=== PATIENT | male | born 1930 | race Caucasian/White ===

== ENCOUNTER 2016-09-27 10:08 | Inpatient (IN) | payer OTHER ==
--- NOTE | 2016-09-27 10:45 | UCPHY ---
H & P Patient Type: Established Chief Complaint Nursing Narrative: dysuria and difficulty urinating since wednesday , seen by urologist last week and given lupron injection for prostate ca. pt able to urinate small amount of blood, clots noted in triage. denies fevers. Time Seen by Provider: 09/27/16 10:11 HPI/ROS: Chief Complaint: Difficulty with urination HPI: 86-year-old male with known prostate cancer presenting with 2 days of difficulty urinating, burning with urination. Did pass some blood clots this morning. He has not had a urinary tract infection he is aware of in the past. No fevers or chills. No nausea or vomiting. Was started this week on Lupron therapy for his prostate cancer. Is a patient of . Has had a Garcia catheter in place for surgeries in the past but does not have a history of urinary retention. No back pain or flank pain. No abdominal pain. ROS: 10 point Review of Systems is negative except as noted in the HPI. 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 North Social History: No smoking, no alcohol, no recreational drug use Family History: non-contributory Physical Exam: Gen: Awake, Alert, No Distress HEENT: Nose: no rhinorrhea Eyes: PERRLA, EOMI Mouth: Moist mucosa Neck: Supple, no JVD Chest: nontender, lungs clear to auscultation Heart: S1, S2 normal, no murmur Abd: Soft, mild discomfort to palpation of his urinary bladder, no guarding Back: no CVA tenderness, no midline tenderness Ext: no edema, non-tender Skin: no rash Neuro: CN II-XII intact, Sensation grossly intact, Strength 5/5 in bilateral upper and lower extremities - Personal History Tetanus Vaccine Date: within 10 years - Medical/Surgical History Hx Asthma: No Hx Chronic Respiratory Disease: No Hx Diabetes: Yes Hx Cardiac Disease: Yes Hx Renal Disease: Yes Hx Cirrhosis: No Hx Alcoholism: No Hx HIV/AIDS: No Hx Splenectomy or Spleen Trauma: No Other PMH: hypothyroid; macular degeneration; hearing loss; hypertension; Hodgkins disease; laser surgery, prostate 04/11; a-fib - Family History Significant Family History: No pertinent family hx - Social History Smoking Status: Never smoked Constitutional: Initial Vital Signs Temperature (C) 36.4 C 09/27/16 10:15 Heart Rate 78 09/27/16 10:15 Respiratory Rate 20 09/27/16 10:15 Blood Pressure 117/65 09/27/16 10:15 O2 Sat (%) 95 09/27/16 10:15 O2 Delivery Mode Room Air Allergies/Adverse Reactions: Sulfa (Sulfonamide Antibiotics) Allergy (Verified 09/27/16 10:27) Unknown hayfever Allergy (Mild, Uncoded 09/27/16 10:27) Congestion Home Medications: Medication Instructions Recorded Coq10 04/04/16 Lisinopril 04/04/16 Macular Degeneration Med 04/04/16 Multivitamin 04/04/16 SIMVASTATIN 04/04/16 Sertraline HCl 04/04/16 Finasteride 09/27/16 Levothyroxine 09/27/16 Plavix 09/27/16 Ranitidine HCl 09/27/16 Tamsulosin HCl 09/27/16 Medical Decision Making Procedures: Procedure: Limited pelvic ultrasound. A limited pelvic was performed for the indication of lower abdominal tenderness and possible urinary retention. The lower abdomen was scanned looking for bladder distention. By ultrasound there appears to be a large amount of retained urine after voiding. The exam was performed by myself. Differential Diagnosis: Patient presenting with urinary tension hematuria here on a background of bladder cancer. Will attempt Garcia catheter placement and evaluate urinalysis. Multiple attempts have been made a catheterization without success. Standard and 18 Kiswahili coude catheters attempted with the nurses meeting resistance at the patient's prostate. Will discuss with Urology with plans to likely transfer to [facility] for consultation. Case discussed with RUBA Forrest, on-call for Dr. Gage. She would like the patient transferred to [facility]. Dr. Tijerina see the patient in the ED. I have discussed with Dr. Fitzpatrick, [facility] ED. He will accept the patient transfer. I have offered pain medicine, but they would rather go directly to the ED. An IV has been placed. - Data Points Medications Given: Discontinued Medications Lidocaine (Uroject Lidocaine 2% Jelly) 20 ml UR EDNOW ONE Stop: 09/27/16 11:09 Last Admin: 09/27/16 11:13 Dose: 20 ml Departure - Departure Disposition: [facility] ER Clinical Impression: Urine retention, Hematuria Condition: Fair Referrals: Joana Montero MD [Primary Care Provider] - As per Instructions - PQRS PQRS Measurement: 134: Depression screening and followup, PRIME MD-PHQ2 (12 years and older) Over the last 2 weeks, how often have you been bothered by any of the following problems? 1. Feeling down, depressed, or hopeless? 2. Little interest or pleasure in doing things? Patient answered no to both 1 and 2 . 130: Documentation of medications. Reviewed all patient medications, doses, route and frequency. . 226: Do you smoke? No. 47: 65 and older: Advanced care planning. Patient designates surrogate decision maker as spouse . 51: 18 years old and older with diagnosis of COPD, spirometry performance. Patient has no history of COPD 52: 18 years old and older with COPD and symptoms of COPD or FEV1<60% predicted prescribed a B Agonist. Spirometry not performed; equipment not available.
[2016-09-27] MEDS ORDERED: LIDOCAINE 2% JELLY 20 ML (UROJECT) UR ONE (11:08)
--- NOTE | 2016-09-27 13:47 | EDPHY ---
HPI/HX/ROS/PE/MDM Narrative: CHIEF COMPLAINT: Urinary retention, dysuria. HISTORY OF PRESENT ILLNESS: The patient is an 86-year-old male with a history of prostate cancer who presents with urinary retention and dysuria over the past 2 days. He was seen by his urologist last week for Lupron injection but did not have symptoms at that time. He was seen at Urgent Care this morning but was only able to urinate a small amount of blood. He admits associated abdominal pain. He denies fever, recent sickness, or other complaints. No chills , chest pain, shortness of breath, palpitations, vomiting, diarrhea, headache, lightheadedness, chest pain. He is anticoagulated on Plavix. REVIEW OF SYSTEMS: Aside from elements discussed in the HPI, a comprehensive 10-point review of systems was reviewed and is negative. PAST MEDICAL HISTORY: CVA, hypothyroidism, macular degeneration, hearing loss , hypertension, atrial fibrillation, prostate cancer. SOCIAL HISTORY: . VITAL SIGNS: Reviewed by me GENERAL: Elderly male, alert, awake, moderate distress secondary to pain. HEENT: Atraumatic. Eyes: No icterus, no injection. Mouth: dry lips, moist mucous membranes. No erythema or lesions. Neck: supple with no adenopathy. LUNGS: Clear to auscultation. CARDIAC: Regular rate and rhythm, no rubs, murmurs or gallops. ABDOMEN: Soft, bladder palpable above pubic symphysis, tender to palpation. Bowel sounds normal. Male : Justin blood and blood clots present in Depends. No blood at meatus. Normal testicular and scrotal exam. BACK: No CVA tenderness. EXTREMITIES: No trauma. No edema. Range of motion is normal throughout. NEURO: Alert and oriented, grossly nonfocal. SKIN: Warm and dry, no rash. PSYCHIATRIC: Normal mentation, no agitation. Portions of this note were transcribed by a medical administrative specialist. I personally performed a history, physical exam, medical decision making, and confirmed accuracy of information the transcribed note. ED Course: After my initial exam I spoke to Lisandra Forrest, urology. She tells me that Dr. Gage is on his way to the ED to consult with the patient. Plan for bladder scan and IV pain medications. .5mg IV Dilaudid administered. Bladder scan shows 257ml urine present. 1503: Consulted with Dr. Gage, urology, after his evaluation of the patient. He will take him to the OR. Arrangements for inpatient bed made. See Dr. Stephens notations. MDM: 86 year old male with urinary retention and hematuria. Diff dx includes infection, bladder cancer, over anticoagulation from plavix, clot, prostate enlargement. - Data Points Medications Given: Discontinued Medications Hydromorphone HCl (Dilaudid) 0.5 mg IVP EDNOW ONE Stop: 09/27/16 13:49 Last Admin: 09/27/16 14:05 Dose: 0.5 mg Lidocaine (Uroject Lidocaine 2% Jelly) 20 ml UR EDNOW ONE Stop: 09/27/16 11:09 Last Admin: 09/27/16 11:13 Dose: 20 ml General Time Seen by Provider: 09/27/16 10:11 Initial Vital Signs: Initial Vital Signs Temperature (C) 36.4 C 09/27/16 10:15 Heart Rate 78 09/27/16 10:15 Respiratory Rate 20 09/27/16 10:15 Blood Pressure 117/65 09/27/16 10:15 O2 Sat (%) 95 09/27/16 10:15 O2 Delivery Mode Room Air Allergies/Adverse Reactions: Sulfa (Sulfonamide Antibiotics) Allergy (Verified 09/27/16 10:27) Unknown hayfever Allergy (Mild, Uncoded 09/27/16 10:27) Congestion Home Medications: Medication Instructions Recorded Aflibercept [Eylea] 2 mg IO Q30D PRN 04/04/16 C/E/Zn/Cu/OM3/DHA/EPA/LUT/ZEAX 1 each PO BID 04/04/16 [Preservision Areds 2 Softgel] Herbals/Supplements -Info Only 1 ea PO DAILY 04/04/16 Lisinopril [Zestril 2.5 mg (*)] 7.5 mg PO DAILY 04/04/16 Sertraline HCl [Zoloft 100mg (*)] 100 mg PO DAILY 04/04/16 Simvastatin [Zocor] 20 mg PO HS 04/04/16 Ascorbic Acid [Vitamin C 500 mg 500 mg PO DAILY 09/27/16 (*)] Cholecalciferol Vit D3 [Vitamin D3 1,000 units PO DAILY 09/27/16 (*)] Clopidogrel Bisulfate [Plavix (*)] 75 mg PO DAILY 09/27/16 Finasteride [Proscar 5 MG (*)] 5 mg PO DAILY 09/27/16 Leuprolide Acetate [Lupron Depot] 22.5 mg IM .[id number] 09/27/16 Levothyroxine [Synthroid 88 mcg 88 mcg PO DAILY06 09/27/16 (*)] Mirabegron [Myrbetriq] 25 mg PO DAILY 09/27/16 Ranitidine HCl 150 mg PO HS 09/27/16 Tamsulosin HCl [Flomax 0.4 MG (*)] 0.8 mg PO DAILY 09/27/16 Departure - Departure Disposition: To OP Cath/Surgery Clinical Impression: Urine retention, Hematuria Condition: Fair Report Scribed for: Va Rosales Report Scribed by: Blake Olivier Date of Report: 09/27/16 Time of Report: 13:49
[2016-09-27] MEDS ORDERED: HYDROmorphONE/DILAUDID 1 MG/ML SYR IVP ONE (13:48)
[2016-09-27] MEDS ORDERED: LIDOCAINE 2% JELLY 20 ML (UROJECT) ONE (14:32)
--- NOTE | 2016-09-27 15:37 | GHP ---
[f rep st] HISTORY AND PHYSICAL DATE OF ADMISSION: 09/27/2016 ADMISSION DIAGNOSIS: Urinary retention. HISTORY OF PRESENT ILLNESS: This is an 86-year-old gentleman, who has had adenocarcinoma of the pro state progressing, and he has had no definitive therapy. He has most recently started Lupron becaus e of rising PSA. He has had a previous photovaporization of the prostate, and an incision of bladde r neck contracture with unsuccessful results. He presents today at urgent care, then transferred to the emergency room because of urinary retention. His bladder is painful. He says he has not voide d for some time. He is not a great historian and does not give total detail. So I have reviewed hi s records from the office that showed he has also had a history of kidney stones. He has recently h ad atrial fibrillation and with a possible stroke, and is on Plavix. His history other than the pro state is not well documented. HABITS: He is a nonsmoker, nondrinker. FAMILY HISTORY: Noncontributory. REVIEW OF SYSTEMS: Negative for respiratory, GI, endocrine. He has atrial fibrillation. Urologica lly, he is normal with no pain or weakness in lower extremities. PHYSICAL EXAM: VITAL SIGNS: Stable. CHEST: Clear. HEART: Regular rate and rhythm. ABDOMEN: N ormal. No organomegaly. No rebound or guarding. Abdomen has the dilated bladder up to his umbilic us. He has no CVA tenderness. EXTREMITIES: No significant lower extremity edema. SKIN: Normal. NEUROLOGIC: Oriented x3. IMPRESSION: He has had a history of diabetes, cardiac disease, renal disease, and prostate cancer, macular degeneration, hearing loss, Hodgkin disease. Family history is noncontributory. At the present time, he is admitted after attempted catheterization in the emergency room. It shoul d be said that he had multiple attempts at catheterization in the previous care facility and that wa s unsuccessful, so he is admitted now to go to the operating room for the above procedure. /[id number]/MODL
--- NOTE | 2016-09-27 15:38 | GCON ---
[f rep st] CONSULTATION I have been asked to see this gentleman because of urinary retention. There have been multiple atte mpts at catheterization, and he is unable to void. He has been progressively worsening over the pas t several days. It appears that he had an endoscopy procedure done in the office recently, it showe d he had a bladder neck contracture, and he was placed on Myrbetriq. His postvoid residual was not documented in the office notes that I could delineate. I reviewed his history, it is well documente d in the emergency room notes, as far as findings. PHYSICAL EXAMINATION: GENERAL: Today he is alert and oriented x3. HEART: Regular rate and rhythm . ABDOMEN: Normal with no rebound or guarding. He has a large abdominal mass related to his bladd er. : Exam of penis reveals that he has blood per urethra. LOWER EXTREMITIES: Normal. IMPRESSION: At the present time in the emergency room, I am going to attempt to do a cystoscopy to see if we can dilate his a bladder neck contracture, put a catheter in. If not, he will need to go to the operating room. /[id number]/MODL
--- NOTE | 2016-09-27 15:38 | GOP ---
[f rep st] OPERATIVE REPORT DATE OF OPERATION: 09/27/2016 SURGEON: Terry Gage MD PREOPERATIVE DIAGNOSIS: Urinary retention, history of prostate cancer, bladder neck contracture. POSTOPERATIVE DIAGNOSIS: PROCEDURE PERFORMED: Cystoscopy with attempted dilation of bladder neck contracture and catheter pl acement, unsuccessful. FINDINGS: DESCRIPTION OF PROCEDURE: Gentleman underwent appropriate anesthesia, prepped and draped in normal sterile fashion. Cystoscopy was passed. He had multiple traumatic injuries of the urethra. On ope mikael the prostate, I could eventually get the clot out to identify he had a bladder neck contracture that would not accommodate the scope. At that point, I passed a guidewire into the bladder through the scope and then tried to dilate it with a urethral dilator, the Tribe tip type, tried to place a Tribe tip catheter, and attempted to pass a Garcia catheter. All unsuccessful, so at that point , I terminated the procedure and have elected to take him to the operating room to undergo incision of bladder neck contracture. Risk of bleeding, infection have been discussed. Written and verbal c onsent were obtained. He will undergo the above procedure. /[id number]/MODL
[2016-09-27] MEDS ORDERED: NON-FORMULARY NEW DRUG (Aflibercept [Eylea] 2 MG) IO PRN (15:42)
[2016-09-27] MEDS ORDERED: ceFAZolin 2 GM/DEXTROSE 100 ML IV ONE (15:44)
[2016-09-27] MEDS ORDERED: MIDAZOLAM 2 MG/2 ML VIAL ONE (15:47)
[2016-09-27] MEDS ORDERED: CEFAZOLIN 2 GM/DEXTROSE/100 ML BAG IV ONE ×2 (15:49→15:53)
[2016-09-27] MEDS ORDERED: PROPOFOL 200 MG/20 ML VIAL ONE (15:55)
[2016-09-27] MEDS ORDERED: LIDOCAINE 2% 5 ML SDV ONE (15:55)
[2016-09-27] MEDS ORDERED: PHENYLEPHRINE HCL 100 MCG/ML SYR ONE (15:55)
[2016-09-27] MEDS ORDERED: fentaNYL 100 MCG/2 ML INJ ONE ×2 (15:55→17:09)
[2016-09-27] MEDS ORDERED: ROCURONIUM 50 MG/5 ML VIAL ONE (15:55)
[2016-09-27] MEDS ORDERED: DEXAMETHASONE 4 MG/ML VIAL ONE (15:55)
[2016-09-27] MEDS ORDERED: SUGAMMADEX SODIUM 200 MG/2 ML VIAL IVP ONE (16:15)
[2016-09-27] MEDS ORDERED: ONDANSETRON DISINTEGRATING 4 MG TAB PO PRN (16:56)
[2016-09-27] MEDS ORDERED: ACETAMINOPHEN 325 MG TAB PO PRN (16:56)
[2016-09-27] MEDS ORDERED: HYDROCODONE/APAP 5/325 TAB PO PRN (16:56)
[2016-09-27] MEDS ORDERED: ONDANSETRON 4 MG/2 ML VIAL IVP PRN (16:56)
[2016-09-27] MEDS ORDERED: OPIUM/BELLADONNA ALKALO SUPP PR PRN (16:56)
--- NOTE | 2016-09-27 16:56 | SUROPNOTE ---
TIFF[facility] Operative Report - Surgery TURP for prostate obstruction, BNC spinal anesthesia: Dr. Barnhart robison placed no specimen dictated note
--- NOTE | 2016-09-27 17:29 | GOP ---
[f rep st] OPERATIVE REPORT DATE OF OPERATION: 09/27/2016 SURGEON: Terry Gage MD GUILLOTINE OPERATOR: None. His preprocedure checklist was done appropriately and he received IV Ancef 2 g prior to the procedur e. ANESTHESIOLOGIST: Dr. Barnhart provided general anesthesia. PREOPERATIVE DIAGNOSIS: 1. Urinary retention. 2. Prostate cancer. 3. Bladder neck contracture. 4. Benign prostatic hypertrophy. POSTOPERATIVE DIAGNOSIS: 1. Urinary retention. 2. Prostate cancer. 3. Bladder neck contracture. 4. Benign prostatic hypertrophy. PROCEDURE PERFORMED: 1. Transurethral resection of the prostate, bipolar. 2. Evacuation of clots. 3. Incision of bladder neck contracture. FINDINGS: DESCRIPTION OF PROCEDURE: This gentleman underwent general anesthesia. He was prepped and draped i n the normal sterile fashion in the dorsal lithotomy position. He had urethral trauma from his attempted catheterizations, and I was able to get the scope up to ju st inside the prostatic fossa. Then with the bipolar button, could incise the bladder neck contract ure to the point that I could get into the bladder. At that point, he had multiple clots in the samir dder and I evacuated those, and the bladder had no perforation and no tumors. It did have erythema from the bleeding noted. At that point, he had the bladder neck contracture, but he had significant lateral lobar hypertrophy and obstruction. So at that point, with the bipolar, I vaporized the right lateral lobe and right portion of the posterior lobe, left lateral lobe and left portion of the posterior lobe were vaporiz ed. Hemostasis was provided by electrocautery. Then, at the end of the procedure, I filled his bladder and with a coude maneuver he voided clear ur ine. At this point, a 3-way Garcia catheter was passed in the bladder and the 60 mL balloon was infl ated, traction placed and irrigated clear. He will be admitted for postoperative care. Will keep his traction on until tomorrow morning and di scontinue it at 6:00 a.m. The main reason for that is because of the extent of the procedure plus t he fact he is on Plavix. No specimen obtained. He tolerated the procedure well. /[id number]/MODL
[2016-09-27] MEDS ORDERED: NON-FORMULARY NEW DRUG (Simvastatin [Zocor] 20 MG) PO SCH (21:00)
[2016-09-27] MEDS ORDERED: NON-FORMULARY NEW DRUG (Ranitidine Hcl [Ranitidine Hcl] 150 MG) PO SCH (21:00)
[2016-09-27] MEDS: ATORVASTATIN CALCIUM 10 MG TAB PO SCH (21:51)
[2016-09-27] MEDS: FAMOTIDINE 20 MG TAB PO SCH (21:52)
[2016-09-27] MEDS: PRESERVISION AREDS2 FORMULA EYE VIT 1 EACH PO SCH (21:52)
[2016-09-27] MEDS: NS 1,000 ML IV SCH (21:57)
[2016-09-28 05:16] LABS: % IMMATURE GRANULYOCYTES 0.4 % (0.0-1.1); ABSOLUTE IMMATURE GRANULOCYTES 0.05 10^3/uL (0.00-0.10); ADD DIFF? NO; ADD MORPH? NO; ADD SCAN? NO; ATYPICAL LYMPHOCYTE FLAG 0 (0-99); FRAGMENT RBC FLAG 0 (0-99); HEMATOCRIT 41.3 % (40.0-51.0); LEFT SHIFT FLG 0 (0-99); LIPEMIA HEMOLYSIS FLAG 90 (0-99); MEAN CELL HEMOGLOBIN 32.2 pg (27.9-34.1); MEAN CELL HEMOGLOBIN CONCENTR. 33.9 g/dL (32.4-36.7); MEAN CELL VOLUME 94.9 fL (81.5-99.8); MEAN PLATELET VOLUME 10.9 fL (8.7-11.7); PLATELET CLUMPS FLAG 10 (0-99); PLATELET COUNT 143 10^3/uL (150-400); RED BLOOD CELL COUNT 4.35 10^6/uL (4.40-6.38); RED CELL DISTRIBUTION WIDTH 13.9 % (11.5-15.2)
[2016-09-28] MEDS: LEVOTHYROXINE 88 MCG TAB PO SCH (05:20)
[2016-09-28 05:38] LABS: ALANINE AMINOTRANSFERASE 22 IU/L (21-72); ALBUMIN 3.3 g/dL (3.5-5.0); ALKALINE PHOSPHATASE 183 IU/L (38-126); ANION GAP 9 mEq/L (8-16); ASPARTATE AMINOTRANSFERASE 20 IU/L (17-59); BILIRUBIN,TOTAL 0.8 mg/dL (0.1-1.4); CALCIUM 8.6 mg/dL (8.5-10.4); CARBON DIOXIDE 20 mEq/l (22-31); CHLORIDE 109 mEq/L (97-110); CREATININE 1.1 mg/dL (0.7-1.3); GLOMERULAR FILTRATION RATE > 60; GLUCOSE 101 mg/dL (70-100); POTASSIUM 4.7 mEq/L (3.5-5.2); SODIUM 138 mEq/L (134-144); TOTAL PROTEIN 5.8 g/dL (6.3-8.2)
[2016-09-28] MEDS ORDERED: NON-FORMULARY NEW DRUG (Mirabegron [Myrbetriq] 25 MG) PO SCH (09:00)
[2016-09-28] MEDS ORDERED: LISINOPRIL 2.5 MG TAB PO SCH (09:00)
[2016-09-28] MEDS ORDERED: Herbals/Supplements -Info Only PO SCH (09:00)
[2016-09-28] MEDS: CHOLECALCIFEROL VIT D3 1,000 UNITS TAB PO SCH (09:32)
[2016-09-28] MEDS: SERTRALINE HCL 100 MG TAB PO SCH (09:32)
[2016-09-28] MEDS: PRESERVISION AREDS2 FORMULA EYE VIT 1 EACH PO SCH ×2 (09:32→20:08)
[2016-09-28] MEDS: ASCORBIC ACID 500 MG TAB PO SCH (09:32)
[2016-09-28] MEDS: LISINOPRIL 5 MG TAB PO SCH (09:33)
[2016-09-28] MEDS: CLOPIDOGREL BISULFATE 75 MG TAB PO SCH (09:33)
[2016-09-28] MEDS: FINASTERIDE 5 MG TAB PO SCH (09:34)
[2016-09-28] MEDS: TAMSULOSIN HCL 0.4 MG CAP PO SCH (09:35)
--- NOTE | 2016-09-28 13:17 | SOAPPROG ---
SOAP Progress Note Assessment/Plan: Assessment: Hematuria Acute secondary to TURP and doing well considering plavix Urine retention Acute indwelling robison post TURP and doing well Bladder neck contracture Acute rxed Plan: DC robison in AM and if pt voids plan DC after. Indication for continue hospitalization is age, recent CVA, anticoagulated and SP TURP with high risk of post op hemorrhage 09/28/16 13:15 Subjective: ok Objective: Vital Signs Temp Pulse Resp BP Pulse Ox 36.5 C 68 18 106/63 98 09/28/16 12:00 09/28/16 12:00 09/28/16 12:00 09/28/16 12:00 09/28/16 12:00 Laboratory Results 09/28/16 04:35 09/28/16 04:35 09/27/16 09/28/16 09/29/16 05:59 05:59 05:59 Intake Total 1070 Output Total 1230 Balance -160 Physical Exam - Physical Exam General Appearance: alert Respiratory: No respiratory distress Cardiac/Chest: regular rate, rhythm Abdomen: soft Male Genitalia: normal genitalia Back: No CVA tenderness Extremities: non-tender, No calf tenderness Neuro/Psych: alert, oriented x 3 ICD10 Worksheet Patient Problems: Problems Problem Status Onset Hematuria Acute Urine retention Acute Bladder neck contracture Acute
[2016-09-28] MEDS: NS 1,000 ML IV SCH (17:05)
[2016-09-28] MEDS: ATORVASTATIN CALCIUM 10 MG TAB PO SCH (20:08)
[2016-09-28] MEDS: FAMOTIDINE 20 MG TAB PO SCH (20:08)
[2016-09-29] MEDS: LEVOTHYROXINE 88 MCG TAB PO SCH (05:31)
[2016-09-29] MEDS: SERTRALINE HCL 100 MG TAB PO SCH (10:26)
[2016-09-29] MEDS: PRESERVISION AREDS2 FORMULA EYE VIT 1 EACH PO SCH ×2 (10:26→20:11)
[2016-09-29] MEDS: CHOLECALCIFEROL VIT D3 1,000 UNITS TAB PO SCH (10:27)
[2016-09-29] MEDS: TAMSULOSIN HCL 0.4 MG CAP PO SCH (10:27)
[2016-09-29] MEDS: LISINOPRIL 5 MG TAB PO SCH (10:28)
[2016-09-29] MEDS: ASCORBIC ACID 500 MG TAB PO SCH (10:28)
[2016-09-29] MEDS: FINASTERIDE 5 MG TAB PO SCH (10:29)
[2016-09-29] MEDS: NON-FORMULARY NEW DRUG (Mirabegron [Myrbetriq] 25 MG) PO SCH (10:29)
[2016-09-29] MEDS: CLOPIDOGREL BISULFATE 75 MG TAB PO SCH (10:29)
--- NOTE | 2016-09-29 15:08 | SOAPPROG ---
SOAP Progress Note Assessment/Plan: Assessment/Plan: Clot retention- improving post clot evacuation. Patient should continue to void on own. PVR tomorrow AM prior to discharge. Confusion- reports he has acute confusion. Unclear on place. 09/29/16 15:06 Objective: Vital Signs Temp Pulse Resp BP Pulse Ox 36.9 C 70 18 113/62 97 09/29/16 08:00 09/29/16 08:00 09/29/16 08:00 09/29/16 10:28 09/29/16 08:00 Laboratory Results 09/28/16 04:35 09/28/16 04:35 09/28/16 09/29/16 09/30/16 05:59 05:59 05:59 Intake Total 1070 1433 Output Total 1230 2875 100 Balance -160 -1442 -100 Physical Exam - Physical Exam General Appearance: alert, no apparent distress Respiratory: normal breath sounds, No respiratory distress Cardiac/Chest: regular rate, rhythm Abdomen: non-tender Skin: normal color Neuro/Psych: alert, No oriented x 3 ICD10 Worksheet Patient Problems: Problems Problem Status Onset Confusion Acute Confusion Acute Hematuria Acute Urine retention Acute Bladder neck contracture Acute - ICD10 Problem Qualifiers (1) Confusion (2) Confusion
--- NOTE | 2016-09-29 17:00 | GCON ---
[f rep st] CONSULTATION HOSPITALIST CONSULTATION DATE OF CONSULTATION: 09/29/2016 REFERRING PHYSICIAN: Terry Gage MD REASON FOR CONSULTATION: Confusion. HISTORY OF PRESENT ILLNESS: This is an 86-year-old male with history of prostate cancer who present ed to the urgent care on 09/27/2016 with urinary retention. He was seen by Dr. Gage on the , at which time he was taken to the operating room where he underwent a TURP for prostate obstruction. Postoperatively, the patient was on a continuous bladder irrigation. At around 2 o'clock this morning. The patient was noted to become agitated, and was noted to be con fused by nursing staff. He demanded that his catheter be removed, which it was at that time. Since the catheter has been taken out, the patient does appear to be voiding, and denies any significant hematuria. The patient was seen with his in the room, who tells me that this morning, he was very confused and thought that they had tickets to travel. He did not know where he was, and was extremely disor iented. The patient's confusion has gotten better. At the time of my exam, he is alert and oriented to pers on, place, and time, but still does not know the month. He denies any pain. He denies any fevers o r chills. He did not sleep last night. He has been drinking very little water. PAST MEDICAL HISTORY: 1. CVA in January of 2016, at which time it sounds like he had a bout of delirium. 2. Hypothyroidism. 3. Macular degeneration. 4. Hearing loss. 5. Hypertension. 6. Atrial fibrillation. 7. Prostate cancer. 8. TURP. MEDICATIONS: Reviewed. Refer to [facility] for details. ALLERGIES: Sulfa. SOCIAL HISTORY: The patient lives independently with his . They drink alcohol occasionally. H e denies any tobacco or illicit drug use. FAMILY HISTORY: Reviewed and noncontributory. REVIEW OF SYSTEMS: Comprehensive 10-point review of systems was done, and is negative, except for w hat was mentioned in the HPI and below. CONSTITUTIONAL: Denies fevers, chills, sweats. CARDIOVASC ULAR: Denies chest pain. ABDOMEN/GI: Denies abdominal pain, nausea, vomiting, or diarrhea. : See HPI. PHYSICAL EXAMINATION: VITAL SIGNS: Blood pressure 113/62, pulse is 70, respiratory rate 18, O2 sat uration 97% on room air. Temperature afebrile. GENERAL: No acute distress. HEAD: Normocephalic, atraumatic. EYES: PERRLA. Sclerae anicteric. MOUTH: Moist mucous membranes. NECK: Supple. N o lymphadenopathy. CARDIOVASCULAR: S1, S2. No murmurs, rubs, clicks, gallops. No JVD. No lower extremity edema. PULMONARY: Lungs are clear. No wheezes, rales, or rhonchi. ABDOMEN: Soft, nont val, nondistended. No guarding or rebound tenderness. No suprapubic tenderness. EXTREMITIES: N o clubbing or cyanosis. NEUROLOGIC: Cranial nerves 2-12 grossly intact. No focal motor or sensory deficits. The patient is alert and oriented to person, place, day, but not month. SKIN: Clear. No rashes. LABORATORY DATA: WBC is 11.6, hemoglobin 14, hematocrit 41.3, platelets 143. Sodium 138, potassium 4.7, chloride 109, CO2 20, BUN 29, creatinine 1.1, glucose 101. LFTs are unremarkable. Alkaline p hosphatase mildly elevated at 183. ASSESSMENT AND PLAN: This is an 86-year-old male, postoperative day 2 TURP, due to prostatic obstru ction, whom I have been asked to evaluate due to: 1. Delirium that appears to be improving. Currently, the patient seems to be mentating appropriate ly. I would recommend that he maintain adequate hydration, given his laboratory studies indicate pr erenal azotemia, with a [id number] ratio of 29:1. I encouraged the patient to drink more flu ids by mouth, and consider IV fluids if he is not taking in an adequate amount of volume. 2. History of hypertension, with relatively low blood pressures during his hospital stay, and docum ented at 88/66 at 4 o'clock this morning. We will hold his home dose of lisinopril for now, and con tinue to monitor blood pressures. 3. Elevated alkaline phosphatase, in the setting of prostate cancer. Consider further workup for b surinder metastases, per his urologic and oncologic teams. Thank you for allowing me to participate in the care of this patient. The Hospitalist service will continue to follow along with his care. /[id number]/MODL
[2016-09-29] MEDS: FAMOTIDINE 20 MG TAB PO SCH (20:11)
[2016-09-29] MEDS: ATORVASTATIN CALCIUM 10 MG TAB PO SCH (20:11)
[2016-09-30] MEDS: LEVOTHYROXINE 88 MCG TAB PO SCH (05:12)
[2016-09-30 06:01] LABS: ANION GAP 8 mEq/L (8-16); CALCIUM 8.8 mg/dL (8.5-10.4); CARBON DIOXIDE 23 mEq/l (22-31); CHLORIDE 110 mEq/L (97-110); CREATININE 1.1 mg/dL (0.7-1.3); GLOMERULAR FILTRATION RATE > 60; GLUCOSE 76 mg/dL (70-100); POTASSIUM 4.1 mEq/L (3.5-5.2); SODIUM 141 mEq/L (134-144)
[2016-09-30 08:33] VITALS: BP 135/75; PULSE 68; RESP 16; TEMP 97.9; O2SAT 96
[2016-09-30] MEDS: CHOLECALCIFEROL VIT D3 1,000 UNITS TAB PO SCH (09:28)
[2016-09-30] MEDS: CLOPIDOGREL BISULFATE 75 MG TAB PO SCH (09:28)
[2016-09-30] MEDS: PRESERVISION AREDS2 FORMULA EYE VIT 1 EACH PO SCH (09:28)
[2016-09-30] MEDS: SERTRALINE HCL 100 MG TAB PO SCH (09:28)
[2016-09-30] MEDS: TAMSULOSIN HCL 0.4 MG CAP PO SCH (09:28)
[2016-09-30] MEDS: ASCORBIC ACID 500 MG TAB PO SCH (09:28)
[2016-09-30] MEDS: FINASTERIDE 5 MG TAB PO SCH (09:29)
[2016-09-30] MEDS: NON-FORMULARY NEW DRUG (Mirabegron [Myrbetriq] 25 MG) PO SCH (09:29)
--- NOTE | 2016-09-30 10:32 | GDS ---
[f rep st] DISCHARGE SUMMARY DISCHARGE DIAGNOSES: 1. 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 Gage. 2. Resolved postoperative delirium. 3. Dehydration. 4. History of hypertension on an JONH inhibitor with episodic hypotension. 5. Elevated alkaline phosphatase. CONSULTANTS: Hospital Medicine. HOSPITAL COURSE AND HOSPITAL STAY BY PROBLEM: 1. Urinary retention: The patient presented to the Urgent Care on 09/27/2016 where they were unabl e to pass a catheter. He was then transferred to the Emergency Department, where he was admitted by Dr. Gage and taken to the operating room for TURP, that was done on 09/27/2016. On postoperative day 2, hospital Medicine was consulted due to episode of delirium, that was likely a result of Fole y catheter placement in the setting of some mild dehydration. His catheter and continuous bladder i rrigation were discontinued on the ocular care technologist hours of the . Since catheter was removed, he h as been voiding adequately without any significant postvoid residual. On day of discharge, the patie nt states he feels well and would like to go home as soon as possible. I discussed this with Rosa Forrest, who is the advanced practice practitioner working with the urology service who thought it was reasonable for him to be discharged home today with followup in their office. 2. Episodic hypotension: During his hospital stay, he did have a bout of hypotension as low as 88/ 66. His lisinopril is currently on hold. He should continue to hold his lisinopril until he is drew luated by his primary care provider to ensure his blood pressure is tolerating it. Given his age, t he JNC recommendation would be to treat for a blood pressure of greater than 150/90. PHYSICAL EXAMINATION: VITAL SIGNS: Exam on day of discharge, blood pressure 135/75, pulse 68, resp iratory rate 16, O2 saturation 96% on room air. Temperature afebrile. GENERAL: No acute distress. HEART: S1, S2. LUNGS: Clear. ABDOMEN: Soft. There is no suprapubic pain. PROCEDURES: Done this hospital stay, TURP done by Dr. Gage on 09/27/2016, refer to report. DISCHARGE MEDICATIONS: Please refer to discharge medication reconciliation in [facility] for full det ails. Below is a preliminary list. Home medications that were placed on hold: Lisinopril. New medications on hospital discharge: None. DISCHARGE INSTRUCTIONS: The patient will be discharged from the hospital where he should follow up with Dr. Gage as directed in the next week or 2 to ensure he is not retaining urine. He should see k emergency medical care if he is unable to void. He should also follow up with his primary care pr rissaer regarding his blood pressure prior to resuming lisinopril. As noted in my consult note, his alkaline phosphatase is mildly elevated and would defer further workup to his primary care provider or his prostate cancer treatment team to evaluate for underlying bony metastases. /[id number]/MODL
[2016-10-20] MEDS ORDERED: NON-FORMULARY NEW DRUG (Aflibercept [Eylea] 2 MG) IO PRN (16:53)
== END 2016-09-30 11:48 | disposition home or self-care (01) | DRG 713 ==
LOC: CED 10:08 → OBSVTOIN 17:05 → F3E 17:56
PROVIDERS: ADMIT Specialist; ATTEND Specialist
PROC: 0TJB8ZZ Inspection of Bladder, Via Natural or Artificial Opening Endoscopic (ICD-10-PCS; principal; 2016-09-27 15:58)
PROC: 0V508ZZ Destruction of Prostate, Via Natural or Artificial Opening Endoscopic (ICD-10-PCS; principal; 2016-09-27 15:58)
PROC: 0TNC8ZZ Release Bladder Neck, Via Natural or Artificial Opening Endoscopic (ICD-10-PCS; principal; 2016-09-27 15:58)
DX: C61 Malignant neoplasm of prostate (principal); N32.0 Bladder-neck obstruction; R33.8 Other retention of urine; F05 Delirium due to known physiological condition; E86.0 Dehydration; I95.81 Postprocedural hypotension; E03.9 Hypothyroidism, unspecified; I10 Essential (primary) hypertension; H35.30 Unspecified macular degeneration; I48.91 Unspecified atrial fibrillation; Z79.01 Long term (current) use of anticoagulants; Z86.73 Personal history of transient ischemic attack (TIA), and cerebral infarction without residual deficits; Z87.442 Personal history of urinary calculi; Z85.71 Personal history of Hodgkin lymphoma
CPT/HCPCS: 97161-GP; G0463-PO; J0690; J1100; J1170; J2250; J2370; J2704; J3010

== ENCOUNTER → 2017-03-11 | Outpatient (CLI) | payer OTHER | LOC: CIMAGING 15:56 | PROVIDERS: ATTEND Family Medicine | DX: Z03.89 Encounter for observation for other suspected diseases and conditions ruled out (principal); Z91.81 History of falling; J34.1 Cyst and mucocele of nose and nasal sinus | CPT/HCPCS: 70450-PO ==

== ENCOUNTER 2017-06-14 10:57 | Emergency (ER) | payer OTHER ==
[2017-06-14 11:07] VITALS: RESP 18; TEMP 97.3
--- NOTE | 2017-06-14 11:50 | EDPHY ---
H & P Time Seen by Provider: 06/14/17 11:04 HPI/ROS: Chief Complaint: Fall, head injury HPI: 87-year-old male with a history of stroke and chronic knee trouble had a mechanical fall this morning when he was walking up some steps and missed his footing. He struck his head either on the wall or on the ground. Did not have a loss of conscious. He has sustained a large laceration. believes that he is taking Plavix. The patient has been recently confused is being worked up for dementia. No fevers or chills. No chest pain or shortness of breath. No abdominal pain. No vision or hearing changes other than his usual macular degeneration. No nausea or vomiting. ROS: 10 point Review of Systems is negative except as noted in the HPI. PMH: CVA, dementia, macular degeneration, chronic knee problems Social History: No smoking, no alcohol, no recreational drug use Family History: non-contributory Physical Exam: Gen: Awake, Alert, Airway Intact HEENT: Head: He has a laceration above his left eyebrow with abrasions to the left eye and zygoma, no bony tenderness or step-offs Eyes: PERRLA, EOMI Mouth: Normal dentition, Airway patent Face: No deformity Neck: non-tender, no stepoff, Chest: non-tender, lungs CTA Heart: normal heart tones Abd: soft, non-tender, atraumatic Pelvis: non-tender, stable to AP and Lateral compression Back: atraumatic, no midline tenderness Ext: atramatic, full ROM Skin: no rash Neuro: CN II-XII intact, Strength 5/5 in all extremities, sensation intact in all extremities - Personal History Tetanus Vaccine Date: within 10 years - Medical/Surgical History Hx Asthma: No Hx Chronic Respiratory Disease: No Hx Diabetes: Yes Hx Cardiac Disease: Yes Hx Renal Disease: Yes Hx Cirrhosis: No Hx Alcoholism: No Hx HIV/AIDS: No Hx Splenectomy or Spleen Trauma: No Other PMH: hypothyroid; macular degeneration; hearing loss; hypertension; Hodgkins disease; laser surgery, prostate 03/2015; a-fib, Stroke in January-2016 , Knee brace and walks w cane - Social History Smoking Status: Never smoked Allergies/Adverse Reactions: Sulfa (Sulfonamide Antibiotics) Allergy (Verified 06/14/17 11:01) Unknown hayfever Allergy (Mild, Uncoded 06/14/17 11:01) Congestion Home Medications: Medication Instructions Recorded Aflibercept [Eylea] 2 mg IO Q30D PRN 04/04/16 C/E/Zn/Cu/OM3/DHA/EPA/LUT/ZEAX 1 each PO BID 04/04/16 [Preservision Areds 2 Softgel] Herbals/Supplements -Info Only 1 ea PO DAILY 04/04/16 Sertraline HCl [Zoloft 100mg (*)] 100 mg PO DAILY 04/04/16 Simvastatin [Zocor] 20 mg PO HS 04/04/16 Ascorbic Acid [Vitamin C 500 mg 500 mg PO DAILY 09/27/16 (*)] Cholecalciferol Vit D3 [Vitamin D3 1,000 units PO DAILY 09/27/16 (*)] Clopidogrel Bisulfate [Plavix (*)] 75 mg PO DAILY 09/27/16 Finasteride [Proscar 5 MG (*)] 5 mg PO DAILY 09/27/16 Leuprolide Acetate [Lupron Depot 22.5 mg IM .[id number] 09/27/16 22.5 MG (RX)] Levothyroxine [Synthroid 88 mcg 88 mcg PO DAILY06 09/27/16 (*)] Ranitidine HCl 150 mg PO HS 09/27/16 Tamsulosin HCl [Flomax 0.4 MG (*)] 0.8 mg PO DAILY 09/27/16 Acetaminophen [Tylenol 325mg (*)] 650 mg PO Q4HRS PRN #0 tab 09/30/16 Medical Decision Making - Diagnostics Imaging Results: CT scan of the head and cervical spine are negative per Dr. Gaviria. Imaging: Discussed imaging studies w/ microelectronics assembler Radiologist Procedures: Procedure: Laceration repair. Verbal consent was obtained from the patient. The 1 cm laceration on the left forehead was anesthetized in the usual fashion. The wound was irrigated, draped and explored to its base with a gloved finger. There were no deep structures involved. No tendon injury was identified. The wound was repaired with 2, 6-0 Ethilon simple interrupted sutures. The wound repair was uncomplicated. The procedure was performed by myself. ED Course/Re-evaluation: 87-year-old male status post mechanical fall. Laceration has been repaired. He does have abrasions. CT scan of the head neck are negative. Will discharge with follow-up with primary care, suture removal in 5 days. Departure - Departure Disposition: Home, Routine, Self-Care Clinical Impression: Forehead laceration, Abrasion, Head injury Condition: Good Instructions: Laceration (ED), Care For Your Stitches (ED), Abrasion (ED), Head Injury (ED) Additional Instructions: Sutures need to be removed in 5 days. Return to the emergency department for increasing confusion, worsening headache , nausea, vomiting, or any other concerns.
[2017-06-14 12:56] VITALS: BP 145/94; PULSE 83; O2SAT 94
== END 2017-06-14 12:17 | disposition home or self-care (01) ==
LOC: CED 10:57
PROC: 0HQ1XZZ Repair Face Skin, External Approach (ICD-10-PCS; principal; 2017-06-14)
DX: S01.81XA Laceration without foreign body of other part of head, initial encounter (principal); E11.9 Type 2 diabetes mellitus without complications; Z86.73 Personal history of transient ischemic attack (TIA), and cerebral infarction without residual deficits; W10.9XXA Fall (on) (from) unspecified stairs and steps, initial encounter; Y99.8 Other external cause status; Y93.01 Activity, walking, marching and hiking
CPT/HCPCS: 70450-PO; 72125-PO

== ENCOUNTER 2017-06-22 13:45 | Inpatient (IN) | payer OTHER ==
--- NOTE | 2017-06-22 14:06 | EDPHY ---
H & P Time Seen by Provider: 06/22/17 14:05 HPI/ROS: CHIEF COMPLAINT: Abnormal lab tests HISTORY OF PRESENT ILLNESS: Patient was called by his primary care clinic because of abnormal creatinine. describes decreased oral intake, decreased urination. 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 He presents today with decreased urination some suprapubic fullness. No palpitations or syncope. REVIEW OF SYSTEMS: Eye: no change in vision ENT: no sore throat Cardiac: no chest pain or syncope Pulmonary: no cough or SOB Abdomen: no vomiting, diarrhea, abdominal pain Musculoskeletal: no back pain Skin: Laceration on left forehead from a fall 1 week ago Neuro: no headache Constitutional: no fever : HPI A comprehensive 10 point review of systems is otherwise negative aside from elements mentioned in the history of present illness. PAST MEDICAL HISTORY: Includes hypothyroid, macular degeneration, Hodgkin's, prostate surgery in 2015, atrial fibrillation, stroke in 2016. Social history: General Appearance: Alert and conversant, cooperative. Eyes: No scleral icterus. ENT, Mouth: Slightly dry mucous membranes. Healing laceration left forehead. Respiratory: Normal respiratory effort, breath sounds equal, lungs are clear to auscultation. Cardiovascular: Regular rate and rhythm. Gastrointestinal: Abdomen is soft and non tender. Some suprapubic fullness. Neurological: Alert and oriented x3. Normally conversant. Face symmetric, normal movement and sensation in all extremities. Skin: Warm and dry, no rashes. Musculoskeletal: No peripheral edema and no joint swelling. Psychiatric: Not agitated. Emergency Department course/MDM: Plan for Robison catheter, repeat labs to include creatinine, IV hydration for clinically looking a little bit dry with history of decreased oral intake. 1431: I-STAT creatinine is 5.1, potassium 4.9. Admission for acute renal failure further evaluation and treatment. Discussed with Anamika 1432. Procedure ED ultrasound: Indication renal failure US bladder shows large volume urine performed by myself. 1503: Discussed with Jamil North, unable to pass robison catheter multiple attempts; he will see today in hospital for catheter. Smoking Status: Never smoked Constitutional: Initial Vital Signs Temperature (C) 36.8 C 06/22/17 13:47 Heart Rate 84 06/22/17 13:47 Respiratory Rate 16 06/22/17 13:47 Blood Pressure 165/105 H 06/22/17 13:47 O2 Sat (%) 98 06/22/17 13:47 O2 Delivery Mode Room Air Allergies/Adverse Reactions: Sulfa (Sulfonamide Antibiotics) Allergy (Verified 06/22/17 13:46) Unknown hayfever Allergy (Mild, Uncoded 06/22/17 13:46) Congestion Home Medications: Medication Instructions Recorded Aflibercept [Eylea] 2 mg IO Q30D PRN 04/04/16 C/E/Zn/Cu/OM3/DHA/EPA/LUT/ZEAX 1 each PO BID 04/04/16 [Preservision Areds 2 Softgel] Herbals/Supplements -Info Only 1 ea PO DAILY 04/04/16 Sertraline HCl [Zoloft 100mg (*)] 100 mg PO DAILY 04/04/16 Simvastatin [Zocor] 20 mg PO HS 04/04/16 Ascorbic Acid [Vitamin C 500 mg 500 mg PO DAILY 09/27/16 (*)] Cholecalciferol Vit D3 [Vitamin D3 1,000 units PO DAILY 09/27/16 (*)] Clopidogrel Bisulfate [Plavix (*)] 75 mg PO DAILY 09/27/16 Finasteride [Proscar 5 MG (*)] 5 mg PO DAILY 09/27/16 Leuprolide Acetate [Lupron Depot 22.5 mg IM .[id number] 09/27/16 22.5 MG (RX)] Levothyroxine [Synthroid 88 mcg 88 mcg PO DAILY06 09/27/16 (*)] Ranitidine HCl 150 mg PO HS 09/27/16 Tamsulosin HCl [Flomax 0.4 MG (*)] 0.8 mg PO DAILY 09/27/16 Acetaminophen [Tylenol 325mg (*)] 650 mg PO Q4HRS PRN #0 tab 09/30/16 Lisinopril [Zestril 2.5 mg (*)] 7.5 mg PO DAILY 06/22/17 Medical Decision Making Differential Diagnosis: Differential for acute renal failure considered including but not limited to primary kidney injury, dehydration, bladder outlet obstruction, urinary tract infection Consult/Admit Bed Type: Jamil from urology will see today for catheter, 1503 - Data Points Laboratory Results: Laboratory Results 06/22/17 14:24 06/22/17 14:30 06/22/17 06/22/17 06/22/17 14:30 14:24 14:20 WBC 9.10 10^3/uL 10^3/uL (3.80-9.50) RBC 3.94 10^6/uL L 10^6/uL (4.40-6.38) Hgb 12.0 g/dL L g/dL (13.7-17.5) POC Hgb 11.9 gm/dL L gm/dL (13.7-17.5) Hct 36.4 % L % (40.0-51.0) POC Hct 35 % L % (40-51) MCV 92.4 fL fL (81.5-99.8) MCH 30.5 pg pg (27.9-34.1) MCHC 33.0 g/dL g/dL (32.4-36.7) RDW 15.1 % % (11.5-15.2) Plt Count 184 10^3/uL 10^3/uL (150-400) MPV 10.9 fL fL (8.7-11.7) Neut % (Auto) 75.0 % H % (39.3-74.2) Lymph % (Auto) 14.0 % L % (15.0-45.0) [place] % (Auto) 8.2 % % (4.5-13.0) Eos % (Auto) 2.1 % % (0.6-7.6) Baso % (Auto) 0.3 % % (0.3-1.7) Nucleat RBC Rel Count 0.0 % % (0.0-0.2) Absolute Neuts (auto) 6.82 10^3/uL H 10^3/uL (1.70-6.50) Absolute Lymphs (auto) 1.27 10^3/uL 10^3/uL (1.00-3.00) Absolute Monos (auto) 0.75 10^3/uL 10^3/uL (0.30-0.80) Absolute Eos (auto) 0.19 10^3/uL 10^3/uL (0.03-0.40) Absolute Basos (auto) 0.03 10^3/uL 10^3/uL (0.02-0.10) Absolute Nucleated RBC 0.00 10^3/uL 10^3/uL (0-0.01) Immature Gran % 0.4 % % (0.0-1.1) Immature Gran # 0.04 10^3/uL 10^3/uL (0.00-0.10) POC Sodium 143 mEq/L mEq/L (134-144) Sodium 146 mEq/L H mEq/L (134-144) POC Potassium 4.9 mEq/L mEq/L (3.3-5.0) Potassium 5.1 mEq/L mEq/L (3.5-5.2) POC Chloride 112 mEq/L H mEq/L (97-110) Chloride 111 mEq/L H mEq/L (97-110) Carbon Dioxide 19 mEq/l L mEq/l (22-31) Anion Gap 16 mEq/L mEq/L (8-16) POC BUN 74 mg/dL H mg/dL (7-23) BUN 74 mg/dL H mg/dL (7-23) Creatinine 4.9 mg/dL H mg/dL (0.7-1.3) POC Creatinine 5.1 mg/dL H mg/dL (0.7-1.3) Estimated GFR 11 Glucose 84 mg/dL mg/dL (70-100) POC Glucose 86 mg/dL mg/dL (70-100) Calcium 9.3 mg/dL mg/dL (8.5-10.4) Point of Care Test Results: 06/22/17 14:20 POC Sodium 143 POC Potassium 4.9 POC Chloride 112 H POC BUN 74 H POC Creatinine 5.1 H POC Glucose 86 Departure - Departure Disposition: [facility] Inpatient Acute Clinical Impression: Acute retention of urine Acute renal failure Qualifiers: Acute renal failure type: unspecified Qualified Code(s): N17.9 - Acute kidney failure, unspecified Condition: Fair
[2017-06-22 14:35] LABS: PLATELET COUNT 184 10^3/uL (150-400)
--- NOTE | 2017-06-22 14:40 | PDGENHP ---
History and Physical - Chief Complaint renal failure - History of Present Illness 87 y/o male with h/o prostate cancer s/p turp 07/2016 presents to the ED after being found to be in renal failure by PCP. Had blood work on Wednesday which indicated renal failure. Took a fall last Wednesday. Only eating one meal per day (dinner) and not drinking much water. States that he "can't urinate", but has a strong sense to urinate. Wets bed every night. No fevers or chills. Reports to be compliant with medications. states Tony has been confused the past 3 nights. ED staff attempted to insert a robison without success History Information - Allergies/Home Medication List Allergies/Adverse Reactions: Sulfa (Sulfonamide Antibiotics) Allergy (Verified 06/22/17 13:46) Unknown hayfever Allergy (Mild, Uncoded 06/22/17 13:46) Congestion Home Medications: Aflibercept [Eylea] 2 mg IO Q30D PRN 04/04/16 [Last Taken 09/20/16] C/E/Zn/Cu/OM3/DHA/EPA/LUT/ZEAX [Preservision Areds 2 Softgel] 1 each PO BID 02/10 [Last Taken 09/27/16 09:00] Herbals/Supplements -Info Only 1 ea PO DAILY 04/04/16 [Last Taken Unknown] Sertraline HCl [Zoloft 100mg (*)] 100 mg PO DAILY 04/04/16 [Last Taken 09/27/16] Simvastatin [Zocor] 20 mg PO HS 04/04/16 [Last Taken 09/26/16] Ascorbic Acid [Vitamin C 500 mg (*)] 500 mg PO DAILY 09/27/16 [Last Taken ] Cholecalciferol Vit D3 [Vitamin D3 (*)] 1,000 units PO DAILY 09/27/16 [Last Taken 09/27/16] Clopidogrel Bisulfate [Plavix (*)] 75 mg PO DAILY 09/27/16 [Last Taken 09/27/16] Finasteride [Proscar 5 MG (*)] 5 mg PO DAILY 09/27/16 [Last Taken 09/27/16] Leuprolide Acetate [Lupron Depot 22.5 MG (RX)] 22.5 mg IM .[id number] 09/27/16 [ Last Taken 09/26/16] Levothyroxine [Synthroid 88 mcg (*)] 88 mcg PO DAILY06 09/27/16 [Last Taken 08/14] Ranitidine HCl 150 mg PO HS 09/27/16 [Last Taken 09/26/16] Tamsulosin HCl [Flomax 0.4 MG (*)] 0.8 mg PO DAILY 09/27/16 [Last Taken 09/27/16 ] Lisinopril [Zestril 2.5 mg (*)] 7.5 mg PO DAILY 06/22/17 [Last Taken Unknown] I have personally reviewed and updated: family history, medical history, social history, surgical history - Past Medical History Additional medical history: prostate cancer w/ urinary retention s/p TURP 10/12, cva 01/2016. hypothyroidism, macular degeneration, hearing loss, hypertension, afib - Surgical History Additional surgical history: TURP - Social History Smoking Status: Never smoked Alcohol Use: Other (1 martini per night) Review of Systems Review of Systems: ROS: 10pt was reviewed & negative except for what was stated in HPI & below Physical Exam Physical Exam: Temp Pulse Resp BP Pulse Ox 36.8 C 84 16 165/105 H 98 06/22/17 13:47 06/22/17 13:47 06/22/17 13:47 06/22/17 13:47 06/22/17 13:47 Constitutional: no apparent distress, appears nourished, not in pain Eyes: PERRL, anicteric sclera, EOMI Ears, Nose, Mouth, Throat: ears appear normal, no oral mucosal ulcers, dry mucous membranes, No hearing normal (decreased hearing) Cardiovascular: regular rate and rhythym, no murmur, rub, or gallop, No edema Respiratory: no respiratory distress, no rales or rhonchi, clear to auscultation Gastrointestinal: normoactive bowel sounds, soft, non-tender abdomen, no palpable masses Genitourinary: no bladder tenderness, no renal bruits, other (bladder fullness) Skin: warm, normal color, no rashes or abrasions, no fluctuance, no induration, No mottled Musculoskeletal: full muscle strength, no muscle tenderness, normal joint ROM, no joint effusions Neurologic: AAOx3, CN II-XII Intact Lab Data & Imaging Review 06/22/17 14:24 06/22/17 14:30 WBC 9.10 10^3/uL (3.80-9.50) 06/22/17 14:24 RBC 3.94 10^6/uL (4.40-6.38) L 06/22/17 14:24 Hgb 12.0 g/dL (13.7-17.5) L 06/22/17 14:24 POC Hgb 11.9 gm/dL (13.7-17.5) L 06/22/17 14:20 Hct 36.4 % (40.0-51.0) L 06/22/17 14:24 POC Hct 35 % (40-51) L 06/22/17 14:20 MCV 92.4 fL (81.5-99.8) 06/22/17 14:24 MCH 30.5 pg (27.9-34.1) 06/22/17 14:24 MCHC 33.0 g/dL (32.4-36.7) 06/22/17 14:24 RDW 15.1 % (11.5-15.2) 06/22/17 14:24 Plt Count 184 10^3/uL (150-400) 06/22/17 14:24 MPV 10.9 fL (8.7-11.7) 06/22/17 14:24 Neut % (Auto) 75.0 % (39.3-74.2) H 06/22/17 14:24 Lymph % (Auto) 14.0 % (15.0-45.0) L 06/22/17 14:24 [place] % (Auto) 8.2 % (4.5-13.0) 06/22/17 14:24 Eos % (Auto) 2.1 % (0.6-7.6) 06/22/17 14:24 Baso % (Auto) 0.3 % (0.3-1.7) 06/22/17 14:24 Nucleat RBC Rel Count 0.0 % (0.0-0.2) 06/22/17 14:24 Absolute Neuts (auto) 6.82 10^3/uL (1.70-6.50) H 06/22/17 14:24 Absolute Lymphs (auto) 1.27 10^3/uL (1.00-3.00) 06/22/17 14:24 Absolute Monos (auto) 0.75 10^3/uL (0.30-0.80) 06/22/17 14:24 Absolute Eos (auto) 0.19 10^3/uL (0.03-0.40) 06/22/17 14:24 Absolute Basos (auto) 0.03 10^3/uL (0.02-0.10) 06/22/17 14:24 Absolute Nucleated RBC 0.00 10^3/uL (0-0.01) 06/22/17 14:24 Immature Gran % 0.4 % (0.0-1.1) 06/22/17 14:24 Immature Gran # 0.04 10^3/uL (0.00-0.10) 06/22/17 14:24 POC Sodium 143 mEq/L (134-144) 06/22/17 14:20 POC Potassium 4.9 mEq/L (3.3-5.0) 06/22/17 14:20 POC Chloride 112 mEq/L (97-110) H 06/22/17 14:20 POC BUN 74 mg/dL (7-23) H 06/22/17 14:20 POC Creatinine 5.1 mg/dL (0.7-1.3) H 06/22/17 14:20 POC Glucose 86 mg/dL (70-100) 06/22/17 14:20 Assessment & Plan Assessment: 87 y/o male with history of prostate cancer and urinary retention s/p TURP 2016 presents with #ROSIBEL likely post obstructive -Urology consulted to assist with robison -renal u/s -hold nephrotoxins -start IVF once robison in place -monitor labs daily #acute encephalopathy secondary to above -montior #h/o HTN -will hold dejuan in light of ROSIBEL -will start low dose norvasc given elevated BP in ED Patient's state he is DNR Place in observation for now
--- NOTE | 2017-06-22 16:03 | ASMTCMCOM ---
CM Note CM Note Notes: Patient admitted with general malaise, confusion, urinary retention. He is s/p TURP in Februrary. ED staff was unable to place Garcia today, and urology was consulted. Patient normally lives with . PT/OT have been ordered, discharge needs TBD. We will follow. Date Signed: 06/22/2017 04:03 PM Electronically Signed By:Valentina Singh RN
[2017-06-22] MEDS ORDERED: LIDOCAINE 1% 5 ML SDV IF ONE (16:30)
[2017-06-22] MEDS ORDERED: LIDOCAINE 1% 5 ML SDV ONE ×3 (17:05→17:25)
[2017-06-22] MEDS: amLODIPine BESYLATE 5 MG TAB PO SCH (18:46)
[2017-06-22] MEDS ORDERED: FAMOTIDINE 20 MG TAB PO SCH (21:00)
[2017-06-22] MEDS: ATORVASTATIN CALCIUM 10 MG TAB PO SCH (21:23)
[2017-06-22] MEDS: PRESERVISION AREDS2 FORMULA EYE VIT 1 EACH PO SCH (21:23)
[2017-06-22] MEDS: HEPARIN 5,000 UNIT/0.5 ML SYR SC SCH (21:27)
[2017-06-23] MEDS: LEVOTHYROXINE 88 MCG TAB PO SCH (05:57)
[2017-06-23] MEDS: HEPARIN 5,000 UNIT/0.5 ML SYR SC SCH (05:57)
[2017-06-23 06:06] LABS: PLATELET COUNT 178 10^3/uL (150-400)
--- NOTE | 2017-06-23 07:48 | GCON ---
[f rep st] CONSULTATION DATE OF CONSULTATION: 06/22/2017 REFERRING PHYSICIAN: Freddie Willson DO APPROXIMATE TIME OF EVALUATION: 5:00 p.m. REASON FOR CONSULTATION: Acute renal failure of urinary retention, history of metastatic prostate cancer. HISTORY OF PRESENT ILLNESS: Mr. Elias is an 87-year-old gentleman who is a patient of my partner Dr. Chantal North who has a history of metastatic prostate cancer. He has a history of bladder outlet obstruction which previously required emergent surgery earlier this year. He was seen in the office earlier this month and was noted to have urinary retention but was relatively asymptomatic from this. He is recommended to have an outpatient cystoscopy. In the interim, patient states he has been weaker, not able to urinate, except in very tiny amounts, and he came in and was found to have a creatinine over 4. Attempts at Garcia catheter placement in the emergency room were unsuccessful. Therefore, I was called for further evaluation. At the time of the evaluation , the patient states he has some mild urge to urinate but is otherwise not in pain. He has not had hematuria. No fevers. He does admit to intermittent small volume incontinence. PAST MEDICAL HISTORY: Prostate cancer, bladder outlet obstruction, stroke, hypothyroidism, macular degeneration, hypertension, atrial fibrillation. PAST SURGICAL HISTORY: TURP. SOCIAL HISTORY: No tobacco, alcohol or drug abuse. FAMILY HISTORY: Reviewed, and is noncontributory. MEDICATIONS: Reviewed and summarized in the chart. REVIEW OF SYSTEMS: Otherwise negative. PHYSICAL EXAMINATION: VITAL SIGNS: He is afebrile with stable vital signs. GENERAL: Alert and oriented x4, no apparent distress. HEENT: Head is normocephalic, atraumatic. Eyes, ears, nose, and throat are within normal limits. NECK: Supple with midline trachea. LUNGS: He has no increased respiratory effort. ABDOMEN: Soft, protuberant, nontender, nondistended. His bladder is palpable up to three-quarters of the way to the umbilicus. GENITALIA : Normal phallus with some erythema of the glans. Normal bilateral descended testes which are somewhat atrophic. EXTREMITIES: No clubbing, cyanosis or edema. LABORATORY STUDIES: Laboratory values were reviewed and summarized in the chart. Creatinine is 4.9. IMPRESSION: 1. Acute renal failure, likely due to bladder outlet obstruction. 2. Metastatic prostate cancer. 3. History of bladder outlet obstruction. PLAN: I attempted to place a Garcia catheter at the bedside without success. This was rather painful and stressful for the patient. Given his acute renal failure and other issues, I did not feel it is in the best interest to go directly to the operating room. Therefore, I discussed with him placing a suprapubic tube. I discussed with him the risks, benefits and alternatives of this procedure, and obtained written informed consent, and this procedure was performed at the bedside. We will plan to leave the suprapubic tube in place until his creatinine normalizes, and then Dr. North can have further discussion with him about long-term management. Please see separate dictation for suprapubic tube placement. Copy requested to: PCP /[id number]/MODL [id number]
--- NOTE | 2017-06-23 07:52 | GOP ---
[f rep st] OPERATIVE REPORT DATE OF OPERATION: 06/22/2017 SURGEON: Lizz Negron MD MANAGER PROTEIN: None. ANESTHESIA: Local with lidocaine 1%. PREOPERATIVE DIAGNOSIS: Urinary retention due to bladder neck obstruction. POSTOPERATIVE DIAGNOSIS: Urinary retention due to bladder neck obstruction. PROCEDURE PERFORMED: Suprapubic tube placement using ultrasound guidance. FINDINGS: SPECIMENS: Urine for culture. ESTIMATED BLOOD LOSS: None recordable. INDICATIONS: This patient is an 87-year-old gentleman with metastatic prostate cancer who has history of recurrent bladder neck obstruction. He came into the hospital with acute renal failure. Garcia catheter attempted was unsuccessful and the patient had significant discomfort associated with this. Therefore, I elected not to attempt a bedside cystoscopy after discussing his options. We did elect to do a suprapubic tube. Before the procedure, I had a lengthy discussion of the risks, benefits and alternatives with him. He did provide informed consent which is written and placed in the chart. DESCRIPTION OF PROCEDURE: After informed consent was obtained, the lower abdomen was prepped and draped in a sterile fashion. Bedside ultrasound confirmed placement of the bladder. The skin was then anesthetized with 1% lidocaine without epinephrine. A finder needle was used to aspirate the bladder. A guidewire was placed through the finder needle and the 1 cm incision was made using a 15 blade. Serial dilators were used to dilate the tract up to 20-Kosovan. An 18-Kosovan Silastic catheter was placed. Return of clear urine was found and a urine culture was obtained and sent for analysis. The balloon was inflated. I irrigated the catheter to make sure it irrigated well. It was placed in a StatLock and a dry dressing was placed. Copy requested to: PCP /[id number]/MODL MTDD
[2017-06-23] MEDS ORDERED: CLOPIDOGREL BISULFATE 75 MG TAB PO SCH (09:00)
[2017-06-23] MEDS ORDERED: Herbals/Supplements -Info Only PO SCH (09:00)
[2017-06-23] MEDS: CHOLECALCIFEROL VIT D3 1,000 UNITS TAB PO SCH (09:11)
[2017-06-23] MEDS: PRESERVISION AREDS2 FORMULA EYE VIT 1 EACH PO SCH ×2 (09:11→21:32)
[2017-06-23] MEDS: SERTRALINE HCL 100 MG TAB PO SCH (09:11)
[2017-06-23] MEDS: amLODIPine BESYLATE 5 MG TAB PO SCH (09:11)
[2017-06-23] MEDS: FINASTERIDE 5 MG TAB PO SCH (09:11)
[2017-06-23] MEDS: ASCORBIC ACID 500 MG TAB PO SCH (09:12)
[2017-06-23] MEDS: TAMSULOSIN HCL 0.4 MG CAP PO SCH (09:12)
--- NOTE | 2017-06-23 10:03 | SOAPPROG ---
SOAP Progress Note Assessment/Plan: Assessment: urinary retention. ARF. SPT placed yesterday Plan: recheck BMP and CBC. Consider fluids for dehydration. Will discuss with hospitalist. 06/23/17 10:02 Subjective: no complaints Objective: Vital Signs Temp Pulse Resp BP Pulse Ox 36.3 C 79 18 128/82 H 98 06/23/17 08:00 06/23/17 08:00 06/23/17 08:00 06/23/17 08:00 06/23/17 08:00 Laboratory Results 06/23/17 04:30 06/23/17 04:30 06/22/17 06/23/17 06/24/17 05:59 05:59 05:59 Intake Total 250 Output Total 2200 Balance -1950 Physical Exam - Physical Exam General Appearance: alert, no apparent distress Respiratory: normal breath sounds, No respiratory distress Cardiac/Chest: No JVD Abdomen: normal bowel sounds, non-tender, other (spt draining bloody urine into bag without clots) ICD10 Worksheet Patient Problems: Problems Problem Status Onset Acute renal failure Acute Acute retention of urine Acute Bladder neck contracture Acute Confusion Acute Confusion Acute Hematuria Acute Urine retention Acute
[2017-06-23] MEDS: D5W 1/2 NS 1,000 ML IV SCH ×2 (10:46→21:49)
--- NOTE | 2017-06-23 13:00 | HOSPPROG ---
Hospitalist Progress Note Assessment/Plan: 87 y/o male with history of prostate cancer and urinary retention s/p TURP 2016. First encounter, chart reviewed. D/W urology. #ROSIBEL post obstructive -suprapubic placed -hold nephrotoxins -start IVF -monitor labs #acute encephalopathy secondary to above -monitor #h/o HTN -will hold dejuan in light of ROSIBEL -will start low dose norvasc given elevated BP in ED #Hemeturia -hold plavix -monitor labs #Dispo -ok to DC with suprapubic in once labs improve -change to inpt status given need for further monitoring Patient's state he is DNR Subjective: Feeling ok. Ate breakfast. No pain. Objective: Vital Signs Temp Pulse Resp BP Pulse Ox 36.4 C 88 14 100/64 93 06/23/17 11:36 06/23/17 11:36 06/23/17 11:36 06/23/17 11:36 06/23/17 11:36 Laboratory Results 06/23/17 04:30 06/23/17 04:30 06/22/17 06/23/17 06/24/17 05:59 05:59 05:59 Intake Total 250 600 Output Total 2200 800 Balance -1950 -200 - Physical Exam Constitutional: appears nourished, not in pain, chronically ill appearing Eyes: PERRL, anicteric sclera, EOMI Ears, Nose, Mouth, Throat: moist mucous membranes, hearing normal, ears appear normal Cardiovascular: regular rate and rhythym, No JVD, No edema Respiratory: no respiratory distress, no rales or rhonchi, reduced air movement Gastrointestinal: normoactive bowel sounds, No tenderness, No ascites Skin: warm, normal color, No erythema Musculoskeletal: normal joint ROM, no joint effusions, generalized weakness Neurologic: No AAOx3 Psychiatric: not anxious, not encephalopathic, poor insight, poor judgement, poor memory ICD10 Worksheet Patient Problems: Problems Problem Status Onset Bladder neck contracture Acute Urine retention Acute Hematuria Acute Confusion Acute Confusion Acute Acute renal failure Acute Acute retention of urine Acute
--- NOTE | 2017-06-23 15:19 | PDMN ---
Medical Necessity Medical necessity: M326 acute renal failure with elevated Cr. , acute encephalopathy, hematuria, urinary retention and bilat obstruction req suprapubic catheter in pt with hx of prostate Ca. further monitoring nec.
[2017-06-23] MEDS ORDERED: D5W 1/2 NS 500 ML IV SCH (19:30)
[2017-06-23] MEDS: ATORVASTATIN CALCIUM 10 MG TAB PO SCH (21:32)
[2017-06-24] MEDS ORDERED: NS 500 ML IV ONE (02:12)
[2017-06-24] MEDS: LEVOTHYROXINE 88 MCG TAB PO SCH (05:26)
[2017-06-24] MEDS: ACETAMINOPHEN 325 MG TAB PO PRN (05:26)
[2017-06-24] MEDS: D5W 1/2 NS 1,000 ML IV SCH ×2 (07:17→17:47)
[2017-06-24] MEDS: amLODIPine BESYLATE 5 MG TAB PO SCH (08:09)
[2017-06-24] MEDS: CHOLECALCIFEROL VIT D3 1,000 UNITS TAB PO SCH (08:16)
[2017-06-24] MEDS: SERTRALINE HCL 100 MG TAB PO SCH (08:16)
[2017-06-24] MEDS: FINASTERIDE 5 MG TAB PO SCH (08:16)
[2017-06-24] MEDS: TAMSULOSIN HCL 0.4 MG CAP PO SCH (08:16)
[2017-06-24] MEDS: ASCORBIC ACID 500 MG TAB PO SCH (08:16)
[2017-06-24] MEDS: PRESERVISION AREDS2 FORMULA EYE VIT 1 EACH PO SCH ×2 (08:16→20:15)
--- NOTE | 2017-06-24 14:25 | HOSPPROG ---
Hospitalist Progress Note Assessment/Plan: 87 y/o male with history of prostate cancer and urinary retention s/p TURP 2016. #ROSIBEL post obstructive -suprapubic placed at bedside -hold nephrotoxins -cont IVF -monitor labs #acute encephalopathy secondary to above -monitor -confusion at baseline -reviewed with #h/o HTN -will hold dejuan in light of ROSIBEL -will start low dose norvasc given elevated BP in ED #Hemeturia -hold plavix -monitor labs #ABLA -follow -related to suprapubic cath and plavix #Dispo -ok to DC with suprapubic in once labs improve -possible DC home 1-2 days if labs continue to improve -reviewed plan with at bedside ->35 minutes bedside Patient's state he is DNR Subjective: Feeling fine. Some confusion. No pain. Objective: Vital Signs Temp Pulse Resp BP Pulse Ox 36.5 C 86 20 110/71 97 06/24/17 11:23 06/24/17 11:23 06/24/17 11:23 06/24/17 13:56 06/24/17 11:23 Laboratory Results 06/24/17 04:20 06/23/17 06/24/17 06/25/17 05:59 05:59 05:59 Intake Total 1212 Output Total 1825 350 Balance -613 -350 - Physical Exam Constitutional: no apparent distress, appears nourished, chronically ill appearing Eyes: PERRL, anicteric sclera, EOMI Ears, Nose, Mouth, Throat: moist mucous membranes, hearing normal, ears appear normal Cardiovascular: regular rate and rhythym, No JVD, No edema Respiratory: no respiratory distress, no rales or rhonchi, reduced air movement Gastrointestinal: normoactive bowel sounds, No tenderness, No ascites Genitourinary: other Skin: warm, normal color, No mottled Musculoskeletal: normal joint ROM, no joint effusions, generalized weakness Neurologic: No AAOx3 Psychiatric: interacting appropriately, not anxious, poor insight, poor judgement, poor memory ICD10 Worksheet Patient Problems: Problems Problem Status Onset Bladder neck contracture Acute Urine retention Acute Hematuria Acute Confusion Acute Confusion Acute Acute renal failure Acute Acute retention of urine Acute
--- NOTE | 2017-06-24 17:12 | ASMTCMCOM ---
CM Note CM Note Notes: Yoli ESPARZA met w/pt to discuss SNF rehab w/pt and he was agreeable. She also left voicemail for pt's . [facility]: [facility], [facility], [facility], [facility], and [facility]. Awaiting responses from SNFs. Date Signed: 06/24/2017 05:12 PM Electronically Signed By:Melba Plascencia RN
[2017-06-24] MEDS: ATORVASTATIN CALCIUM 10 MG TAB PO SCH (20:15)
[2017-06-25] MEDS: LEVOTHYROXINE 88 MCG TAB PO SCH (04:21)
--- NOTE | 2017-06-25 08:48 | HOSPPROG ---
Hospitalist Progress Note Assessment/Plan: 87 y/o male with history of prostate cancer and urinary retention s/p TURP 2016. First encounter, chart reviewed. #ROSIBEL post obstructive -suprapubic placed -hold nephrotoxins -kidney function is improving -spoke w nephrology and they will f/u w him in OP setting -patient is better #acute encephalopathy secondary to above -slowly improving #h/o HTN -will hold dejuan in light of ROSIBEL -Norvasc #hypernatremic taking in very little oral intake iv fluids #Hematuria -hold plavix -having ongoing cruz, tea colored urine #Dispo: reviewed his care w his , he will need closer monitoring and he would benefit from the SNF. She is in agreement w this. Subjective: Tony has no c/o pain, feeling overall well. Objective: Vital Signs Temp Pulse Resp BP Pulse Ox 36.4 C 72 16 106/74 94 06/25/17 07:59 06/25/17 07:59 06/25/17 07:59 06/25/17 07:59 06/25/17 07:59 Laboratory Results 06/25/17 04:22 06/25/17 04:22 06/24/17 06/25/17 06/26/17 05:59 05:59 05:59 Intake Total 1212 1600 Output Total 1825 2250 Balance -613 -650 - Physical Exam Constitutional: not in pain, chronically ill appearing Eyes: PERRL Ears, Nose, Mouth, Throat: hearing normal Cardiovascular: regular rate and rhythym Respiratory: no respiratory distress Gastrointestinal: normoactive bowel sounds Genitourinary: other (suprapubic catheter with blood, tea colored urine) Skin: warm, normal color Musculoskeletal: generalized weakness Neurologic: other (alert and oriented to himself, that he's in [place] and knows it was recently [place]) Psychiatric: interacting appropriately, encephalopathic ICD10 Worksheet Patient Problems: Problems Problem Status Onset Acute renal failure Acute Acute retention of urine Acute Bladder neck contracture Acute Confusion Acute Confusion Acute Hematuria Acute Urine retention Acute
[2017-06-25] MEDS ORDERED: LACTULOSE 20 GM/30 ML UDCUP PO PRN (10:06)
[2017-06-25] MEDS ORDERED: BISACODYL 10 MG SUPP PR PRN (10:06)
[2017-06-25] MEDS: amLODIPine BESYLATE 5 MG TAB PO SCH (10:07)
[2017-06-25] MEDS: SERTRALINE HCL 100 MG TAB PO SCH (10:14)
[2017-06-25] MEDS: PRESERVISION AREDS2 FORMULA EYE VIT 1 EACH PO SCH ×2 (10:14→20:56)
[2017-06-25] MEDS: CHOLECALCIFEROL VIT D3 1,000 UNITS TAB PO SCH (10:14)
[2017-06-25] MEDS: ASCORBIC ACID 500 MG TAB PO SCH (10:14)
[2017-06-25] MEDS: TAMSULOSIN HCL 0.4 MG CAP PO SCH (10:14)
[2017-06-25] MEDS: FINASTERIDE 5 MG TAB PO SCH (10:15)
[2017-06-25] MEDS: POLYETHYLENE GLYCOL 3350 17 GM PKT PO SCH (11:16)
--- NOTE | 2017-06-25 12:31 | ASMTCMCOM ---
CM Note CM Note Notes: Spoke w/pt's re; dc SNF. She is amenable to pt going to SNF, let her know which rehabs we sent referrals to and she chooses [facility] as it is the closest to them. CM will let her know when we get an approval. DC Plan: SNF Date Signed: 06/25/2017 12:30 PM Electronically Signed By:Yoli Guthrie RN
[2017-06-25] MEDS ORDERED: NS 500 ML IV SCH (13:15)
--- NOTE | 2017-06-25 14:17 | ASMTCMCOM ---
CM Note CM Note Notes: Received call from Gerhard at [facility], pt has been accepted but they need to send in for authorization from ins and won't come throught today. Due to holiday weekend, probably won't get until Wednesday. DC Plan: [facility] Date Signed: 06/25/2017 02:17 PM Electronically Signed By:oYli Guthrie RN
[2017-06-25] MEDS: SENNOSIDES/DOCUSATE SODIUM TAB PO SCH (20:56)
[2017-06-25] MEDS: ATORVASTATIN CALCIUM 10 MG TAB PO SCH (20:56)
[2017-06-26] MEDS: LEVOTHYROXINE 88 MCG TAB PO SCH (06:24)
[2017-06-26] MEDS: PRESERVISION AREDS2 FORMULA EYE VIT 1 EACH PO SCH ×2 (08:22→20:50)
[2017-06-26] MEDS: TAMSULOSIN HCL 0.4 MG CAP PO SCH (08:23)
[2017-06-26] MEDS: FINASTERIDE 5 MG TAB PO SCH (08:23)
[2017-06-26] MEDS: CHOLECALCIFEROL VIT D3 1,000 UNITS TAB PO SCH (08:23)
[2017-06-26] MEDS: SERTRALINE HCL 100 MG TAB PO SCH (08:23)
[2017-06-26] MEDS: amLODIPine BESYLATE 5 MG TAB PO SCH (08:23)
[2017-06-26] MEDS: ASCORBIC ACID 500 MG TAB PO SCH (08:23)
[2017-06-26] MEDS ORDERED: 1/2 NS 500 ML IV SCH (08:30)
[2017-06-26] MEDS: POLYETHYLENE GLYCOL 3350 17 GM PKT PO SCH (08:36)
[2017-06-26] MEDS: SENNOSIDES/DOCUSATE SODIUM TAB PO SCH ×2 (08:36→20:49)
[2017-06-26] MEDS: ACETAMINOPHEN 325 MG TAB PO PRN (15:16)
[2017-06-26] MEDS: ATORVASTATIN CALCIUM 10 MG TAB PO SCH (20:50)
[2017-06-27] MEDS: LEVOTHYROXINE 88 MCG TAB PO SCH (05:22)
[2017-06-27] MEDS: FINASTERIDE 5 MG TAB PO SCH (08:19)
[2017-06-27] MEDS: POLYETHYLENE GLYCOL 3350 17 GM PKT PO SCH (08:19)
[2017-06-27] MEDS: PRESERVISION AREDS2 FORMULA EYE VIT 1 EACH PO SCH ×2 (08:19→20:26)
[2017-06-27] MEDS: SENNOSIDES/DOCUSATE SODIUM TAB PO SCH ×2 (08:19→20:26)
[2017-06-27] MEDS: CHOLECALCIFEROL VIT D3 1,000 UNITS TAB PO SCH (08:19)
[2017-06-27] MEDS: TAMSULOSIN HCL 0.4 MG CAP PO SCH (08:19)
[2017-06-27] MEDS: amLODIPine BESYLATE 5 MG TAB PO SCH (08:19)
[2017-06-27] MEDS: SERTRALINE HCL 100 MG TAB PO SCH (08:20)
[2017-06-27] MEDS: ASCORBIC ACID 500 MG TAB PO SCH (08:20)
--- NOTE | 2017-06-27 09:36 | HOSPPROG ---
Hospitalist Progress Note Assessment/Plan: 87 y/o male with history of prostate cancer and urinary retention s/p TURP 2016. #ROSIBEL post obstructive -suprapubic placed -hold nephrotoxins -kidney function is improving -spoke w nephrology and they will f/u w him in OP setting -patient is better #acute encephalopathy secondary to above -slowly improving #h/o HTN -will hold dejuan in light of ROSIBEL -Norvasc #hypernatremic improving oral intake #Hematuria -hold plavix -urine is clear #Hx of stroke -will soon resume Plavix #Dispo: SNF wednesday Subjective: Tony has no complaints, appetite is good. Objective: Vital Signs Temp Pulse Resp BP Pulse Ox 36.2 C 87 16 108/81 H 90 L 06/27/17 07:17 06/27/17 07:17 06/27/17 07:17 06/27/17 08:19 06/27/17 07:17 Laboratory Results 06/25/17 04:22 06/27/17 04:15 06/26/17 06/27/17 06/28/17 05:59 05:59 05:59 Intake Total 2286 Output Total 2502 2688 400 Balance -1685 -439 -400 - Physical Exam Constitutional: not in pain Eyes: PERRL Ears, Nose, Mouth, Throat: hearing normal Cardiovascular: regular rate and rhythym Respiratory: no respiratory distress Skin: warm Musculoskeletal: generalized weakness Psychiatric: interacting appropriately, poor insight, poor memory ICD10 Worksheet Patient Problems: Problems Problem Status Onset Acute renal failure Acute Acute retention of urine Acute Bladder neck contracture Acute Confusion Acute Confusion Acute Hematuria Acute Urine retention Acute
--- NOTE | 2017-06-27 12:21 | HOSPPROG ---
Hospitalist Progress Note Assessment/Plan: 87 y/o male with history of prostate cancer and urinary retention s/p TURP 2016. #ROSIBEL post obstructive -suprapubic placed -hold nephrotoxins -kidney function is improving -spoke w nephrology and they will f/u w him in OP setting #acute encephalopathy secondary to above -slowly improving -confused sandi in the morning #weakness due to the above -PT and OT recommending SNF #h/o HTN -will hold dejuan in light of ROSIBEL -Norvasc #hypernatremic improving oral intake #Hematuria -hold plavix -urine is clear #Hx of stroke -will soon resume Plavix #Dispo: SNF wednesday,updated his ,Marline, on plan of care Subjective: Tony has no c/o pain, doesn't know why he is here. Objective: Vital Signs Temp Pulse Resp BP Pulse Ox 36.3 C 94 20 107/64 98 06/27/17 10:51 06/27/17 10:51 06/27/17 10:51 06/27/17 10:51 06/27/17 10:51 Laboratory Results 06/25/17 04:22 06/27/17 04:15 06/26/17 06/27/17 06/28/17 05:59 05:59 05:59 Intake Total 2286 Output Total 2505 2325 400 Balance -5513 -439 -400 - Physical Exam Constitutional: no apparent distress, appears nourished, not in pain Eyes: PERRL Ears, Nose, Mouth, Throat: hearing normal Cardiovascular: regular rate and rhythym Gastrointestinal: normoactive bowel sounds Skin: warm Musculoskeletal: generalized weakness Psychiatric: interacting appropriately, poor insight, poor memory ICD10 Worksheet Patient Problems: Problems Problem Status Onset Acute renal failure Acute Acute retention of urine Acute Bladder neck contracture Acute Confusion Acute Confusion Acute Hematuria Acute Urine retention Acute
[2017-06-27] MEDS: ATORVASTATIN CALCIUM 10 MG TAB PO SCH (20:26)
[2017-06-28] MEDS: LEVOTHYROXINE 88 MCG TAB PO SCH (05:00)
--- NOTE | 2017-06-28 08:26 | HOSPPROG ---
Hospitalist Progress Note Assessment/Plan: 87 y/o male with history of prostate cancer and urinary retention s/p TURP 2016. #Bladder outlet obstruction causing ROSIBEL -suprapubic placed -hold nephrotoxins -kidney function is improving -spoke w nephrology and they will f/u w him in OP setting -patient will f/u with Dr North-need to further discuss prison plan #acute encephalopathy secondary to above -slowly improving -confused sandi in the morning #Hypotension -had significant urine output after robison placed in -will give a bolus #weakness due to the above -PT and OT recommending SNF #h/o HTN -will hold dejuan in light of ROSIBEL -Norvasc #hypernatremic improving oral intake #Hematuria -hold plavix -urine is clear #Hx of stroke -will soon resume Plavix, but will need to talk w urology as to when #Dispo: SNF wednesday,updated his ,Marline, on plan of care Subjective: Tony wants to go home. Objective: Vital Signs Temp Pulse Resp BP Pulse Ox 36.8 C 80 20 100/62 93 06/28/17 07:58 06/28/17 07:58 06/28/17 07:58 06/28/17 07:58 06/28/17 07:58 Laboratory Results 06/25/17 04:22 06/28/17 05:17 06/27/17 06/28/17 06/29/17 05:59 05:59 05:59 Intake Total 2286 1186 Output Total 2725 0 Balance -439 -658 - Physical Exam Constitutional: appears nourished, not in pain Eyes: PERRL Ears, Nose, Mouth, Throat: hearing normal Cardiovascular: regular rate and rhythym Respiratory: no respiratory distress Gastrointestinal: normoactive bowel sounds Skin: warm Musculoskeletal: generalized weakness Psychiatric: interacting appropriately, poor memory ICD10 Worksheet Patient Problems: Problems Problem Status Onset Acute renal failure Acute Acute retention of urine Acute Bladder neck contracture Acute Confusion Acute Confusion Acute Hematuria Acute Urine retention Acute
[2017-06-28] MEDS ORDERED: Aflibercept [Eylea] 2 MG IO PRN (09:00)
[2017-06-28] MEDS ORDERED: LEUPROLIDE ACETATE IM SCH (09:00)
[2017-06-28] MEDS: CHOLECALCIFEROL VIT D3 1,000 UNITS TAB PO SCH (09:22)
[2017-06-28] MEDS: SERTRALINE HCL 100 MG TAB PO SCH (09:22)
[2017-06-28] MEDS: TAMSULOSIN HCL 0.4 MG CAP PO SCH (09:22)
[2017-06-28] MEDS: PRESERVISION AREDS2 FORMULA EYE VIT 1 EACH PO SCH ×2 (09:23→21:01)
[2017-06-28] MEDS: ASCORBIC ACID 500 MG TAB PO SCH (09:23)
[2017-06-28] MEDS: SENNOSIDES/DOCUSATE SODIUM TAB PO SCH ×2 (09:23→21:02)
[2017-06-28] MEDS: POLYETHYLENE GLYCOL 3350 17 GM PKT PO SCH (09:23)
[2017-06-28] MEDS: amLODIPine BESYLATE 5 MG TAB PO SCH (09:23)
[2017-06-28] MEDS: FINASTERIDE 5 MG TAB PO SCH (09:23)
[2017-06-28] MEDS ORDERED: NS 250 ML IV ONE (11:10)
--- NOTE | 2017-06-28 11:25 | ASMTCMCOM ---
CM Note CM Note Notes: Patient to D/C to [facility] tomorrow per Miesha Prieto NP. [facility] has accepted. CM will follow. Date Signed: 06/28/2017 11:25 AM Electronically Signed By:Milka Almodovar LCSW
[2017-06-28] MEDS: ATORVASTATIN CALCIUM 10 MG TAB PO SCH (21:01)
[2017-06-29] MEDS: LEVOTHYROXINE 88 MCG TAB PO SCH (06:05)
--- NOTE | 2017-06-29 08:27 | HOSPPROG ---
Hospitalist Progress Note Assessment/Plan: 87 y/o male with history of prostate cancer and urinary retention s/p TURP 2016. #Bladder outlet obstruction causing ROSIBEL -suprapubic placed -hold nephrotoxins -kidney function is improving -spoke w nephrology and they will f/u w him in OP setting -patient will f/u with Dr North-need to further discuss snf plan/ has an appt scheduled for the 12 of July #acute encephalopathy secondary to above -slowly improving -confused sandi in the morning #Hypotension -had significant urine output after robison placed in -will give a bolus #weakness due to the above -PT and OT recommending SNF #h/o HTN -will hold dejuan in light of ROSIBEL -Norvasc #hypernatremic improving oral intake #Hematuria -hold plavix -urine is clear #Hx of stroke -will soon resume Plavix, but will need to talk w urology as to when #Dispo: SNF Subjective: Tony has no complaints, no appetite today. Objective: Vital Signs Temp Pulse Resp BP Pulse Ox 36.4 C 82 15 110/70 100 06/29/17 04:00 06/29/17 04:00 06/29/17 04:00 06/29/17 04:00 06/29/17 04:00 Laboratory Results 06/25/17 04:22 06/29/17 04:24 06/28/17 06/29/17 06/30/17 05:59 05:59 05:59 Intake Total 1186 380 Output Total 2049 1100 Balance -864 -720 - Physical Exam Constitutional: no apparent distress, chronically ill appearing Eyes: PERRL Ears, Nose, Mouth, Throat: hearing normal Cardiovascular: regular rate and rhythym Respiratory: no respiratory distress Skin: warm Musculoskeletal: generalized weakness Psychiatric: interacting appropriately, poor memory ICD10 Worksheet Patient Problems: Problems Problem Status Onset Acute renal failure Acute Acute retention of urine Acute Bladder neck contracture Acute Confusion Acute Confusion Acute Hematuria Acute Urine retention Acute
[2017-06-29] MEDS: ASCORBIC ACID 500 MG TAB PO SCH (09:04)
[2017-06-29] MEDS: TAMSULOSIN HCL 0.4 MG CAP PO SCH (09:04)
[2017-06-29] MEDS: SENNOSIDES/DOCUSATE SODIUM TAB PO SCH ×2 (09:04→23:39)
[2017-06-29] MEDS: POLYETHYLENE GLYCOL 3350 17 GM PKT PO SCH ×2 (09:04→09:24)
[2017-06-29] MEDS: FINASTERIDE 5 MG TAB PO SCH (09:05)
[2017-06-29] MEDS: PRESERVISION AREDS2 FORMULA EYE VIT 1 EACH PO SCH ×2 (09:05→20:44)
[2017-06-29] MEDS: SERTRALINE HCL 100 MG TAB PO SCH (09:05)
[2017-06-29] MEDS: CHOLECALCIFEROL VIT D3 1,000 UNITS TAB PO SCH (09:05)
--- NOTE | 2017-06-29 10:54 | PDIAF ---
- Diagnosis Diagnosis: BOLANOS, ROSIBEL, prostate ca, delerium Code Status: Do Not Resuscitate - Medication Management Discharge Medications: Medications to Continue on Transfer Aflibercept [Eylea] 2 mg IO Q30D PRN 04/04/16 [Last Taken 09/20/16] C/E/Zn/Cu/OM3/DHA/EPA/LUT/ZEAX [Preservision Areds 2 Softgel] 1 each PO BID 02/10 [Last Taken 09/27/16 09:00] Herbals/Supplements -Info Only 1 ea PO DAILY 04/04/16 [Last Taken Unknown] Sertraline HCl [Zoloft 100mg (*)] 100 mg PO DAILY 04/04/16 [Last Taken 09/27/16] Simvastatin [Zocor] 20 mg PO HS 04/04/16 [Last Taken 09/26/16] Ascorbic Acid [Vitamin C 500 mg (*)] 500 mg PO DAILY 09/27/16 [Last Taken ] Cholecalciferol Vit D3 [Vitamin D3 (*)] 1,000 units PO DAILY 09/27/16 [Last Taken 09/27/16] Finasteride [Proscar 5 MG (*)] 5 mg PO DAILY 09/27/16 [Last Taken 09/27/16] Leuprolide Acetate [Lupron Depot 22.5 MG (RX)] 22.5 mg IM .[id number] 09/27/16 [ Last Taken 09/26/16] Levothyroxine [Synthroid 88 mcg (*)] 88 mcg PO DAILY06 09/27/16 [Last Taken 08/14] Ranitidine HCl 150 mg PO HS 09/27/16 [Last Taken 09/26/16] Tamsulosin HCl [Flomax 0.4 MG (*)] 0.8 mg PO DAILY 09/27/16 [Last Taken 09/27/16 ] Acetaminophen [Tylenol 325mg (*)] 650 mg PO Q4HRS PRN #0 tab 09/30/16 [Last Taken Unknown] Polyethylene Glycol 3350 [Miralax 17 gm (*)] 17 gm PO DAILY pkt 06/29/17 [Last Taken Unknown] Sennosides/Docusate Sodium [Senokot-S] 1 - 2 tab PO BID tab 06/29/17 [Last Taken Unknown] amLODIPine BESYLATE [Norvasc 5 mg (*)] 5 mg PO DAILY tab 06/29/17 [Last Taken Unknown] Discharge Medications: Refer to the Discharge Home Medication list for PRN reason. - Orders Services needed: Physical Therapy, Occupational Therapy Diet Recommendation: no restrictions on diet Diet Texture: Regular Texture Diet Garcia: Yes (suprapubic) Additional: Lisinopril has been discontinued due to renal failure. Norvasc has been given to control his blood pressure. Plavix has been placed on hold for further procedures with Dr. North. Plavix should be resumed as soon as possible because patient has a history of a stroke. - Labs/Radiology BMP Date: 07/03/17 (weekly) - Follow Up Care Current Providers and Referrals: Joana Montero MD [Primary Care Provider] - As per Instructions
[2017-06-29] MEDS: amLODIPine BESYLATE 5 MG TAB PO SCH (11:36)
[2017-06-29] MEDS ORDERED: NS 500 ML IV ONE (12:05)
--- NOTE | 2017-06-29 13:59 | ASMTCMCOM ---
CM Note CM Note Notes: CM spoke w/ CAROLEE Salas and Miesha Prieto NP regarding d/c POC. Initally the plan was to have pt d/c today to [facility]. However, pt is not medically ready today. CM informed [facility] to start getting auth. CM to follow. Plan: [facility] Date Signed: 06/29/2017 01:59 PM Electronically Signed By:SHANELLE Pineda
[2017-06-29] MEDS ORDERED: NS 1,000 ML IV SCH (16:45)
[2017-06-29] MEDS: ATORVASTATIN CALCIUM 10 MG TAB PO SCH (20:44)
[2017-06-30] MEDS: LEVOTHYROXINE 88 MCG TAB PO SCH (04:58)
[2017-06-30] MEDS: TAMSULOSIN HCL 0.4 MG CAP PO SCH (08:39)
[2017-06-30] MEDS: SENNOSIDES/DOCUSATE SODIUM TAB PO SCH ×2 (08:40→20:20)
[2017-06-30] MEDS: ASCORBIC ACID 500 MG TAB PO SCH (08:40)
[2017-06-30] MEDS: CHOLECALCIFEROL VIT D3 1,000 UNITS TAB PO SCH (08:40)
[2017-06-30] MEDS: PRESERVISION AREDS2 FORMULA EYE VIT 1 EACH PO SCH ×2 (08:40→20:20)
[2017-06-30] MEDS: SERTRALINE HCL 100 MG TAB PO SCH (08:40)
[2017-06-30] MEDS: POLYETHYLENE GLYCOL 3350 17 GM PKT PO SCH (08:43)
--- NOTE | 2017-06-30 11:36 | HOSPPROG ---
Hospitalist Progress Note Assessment/Plan: 87 y/o male with history of prostate cancer and urinary retention s/p TURP 2016. #Bladder outlet obstruction causing ROSIBEL -suprapubic placed -hold nephrotoxins -kidney function is improving -spoke w nephrology and they will f/u w him in OP setting -patient will f/u with Dr North-need to further discuss detention plan/ has an appt scheduled for the 12 of July #acute encephalopathy secondary to above -slowly improving -confused sandi in the morning #Hypotension -had significant urine output after robison placed in -has been given multiple boluses during his stay -this morning's blood pressure is stable. #weakness due to the above -PT and OT recommending SNF #h/o HTN -will hold dejuan in light of ROSIBEL -will DC Norvasc since he has been hypo intensive #hypernatremic improving oral intake #Hematuria -hold plavix -urine is clear #Hx of stroke -will soon resume Plavix, but will need to talk w urology as to when #Dispo: SNF , I spoke with Dr. Kristy Camarena and he will try to arrange to see the patient tomorrow for further evaluation. It is important that the patient resume his Plavix with history of a stroke. Subjective: Tony has no complaints Objective: Vital Signs Temp Pulse Resp BP Pulse Ox 36.6 C 81 16 113/63 99 06/30/17 10:53 06/30/17 10:53 06/30/17 10:53 06/30/17 10:53 06/30/17 10:53 Laboratory Results 06/25/17 04:22 06/30/17 04:24 06/29/17 06/30/17 07/01/17 05:59 05:59 05:59 Intake Total 380 450 Output Total 1100 925 Balance -720 -475 - Physical Exam Constitutional: not in pain, chronically ill appearing Eyes: PERRL Ears, Nose, Mouth, Throat: hard of hearing Respiratory: no respiratory distress Skin: warm Musculoskeletal: generalized weakness Psychiatric: interacting appropriately, poor insight, poor memory ICD10 Worksheet Patient Problems: Problems Problem Status Onset Acute renal failure Acute Acute retention of urine Acute Bladder neck contracture Acute Confusion Acute Confusion Acute Hematuria Acute Urine retention Acute
--- NOTE | 2017-06-30 11:53 | PDIAF ---
- Diagnosis Diagnosis: BOLANOS, ROSIBEL, prostate ca, delerium Code Status: Do Not Resuscitate - Medication Management Discharge Medications: Medications to Continue on Transfer Aflibercept [Eylea] 2 mg IO Q30D PRN 04/04/16 [Last Taken 09/20/16] C/E/Zn/Cu/OM3/DHA/EPA/LUT/ZEAX [Preservision Areds 2 Softgel] 1 each PO BID 02/10 [Last Taken 09/27/16 09:00] Herbals/Supplements -Info Only 1 ea PO DAILY 04/04/16 [Last Taken Unknown] Sertraline HCl [Zoloft 100mg (*)] 100 mg PO DAILY 04/04/16 [Last Taken 09/27/16] Simvastatin [Zocor] 20 mg PO HS 04/04/16 [Last Taken 09/26/16] Ascorbic Acid [Vitamin C 500 mg (*)] 500 mg PO DAILY 09/27/16 [Last Taken ] Cholecalciferol Vit D3 [Vitamin D3 (*)] 1,000 units PO DAILY 09/27/16 [Last Taken 09/27/16] Finasteride [Proscar 5 MG (*)] 5 mg PO DAILY 09/27/16 [Last Taken 09/27/16] Leuprolide Acetate [Lupron Depot 22.5 MG (RX)] 22.5 mg IM .[id number] 09/27/16 [ Last Taken 09/26/16] Levothyroxine [Synthroid 88 mcg (*)] 88 mcg PO DAILY06 09/27/16 [Last Taken 08/14] Ranitidine HCl 150 mg PO HS 09/27/16 [Last Taken 09/26/16] Tamsulosin HCl [Flomax 0.4 MG (*)] 0.8 mg PO DAILY 09/27/16 [Last Taken 09/27/16 ] Acetaminophen [Tylenol 325mg (*)] 650 mg PO Q4HRS PRN #0 tab 09/30/16 [Last Taken Unknown] Polyethylene Glycol 3350 [Miralax 17 gm (*)] 17 gm PO DAILY pkt 06/29/17 [Last Taken Unknown] Sennosides/Docusate Sodium [Senokot-S] 1 - 2 tab PO BID tab 06/29/17 [Last Taken Unknown] Discharge Medications: Refer to the Discharge Home Medication list for PRN reason. - Orders Services needed: Physical Therapy, Occupational Therapy Diet Recommendation: no restrictions on diet Diet Texture: Regular Texture Diet Garcia: Yes (suprapubic) Additional: Lisinopril has been discontinued due to renal failure and hyppotension. Plavix has been placed on hold for further procedures with Dr. North. Plavix should be resumed as soon as possible because patient has a history of a stroke. Tenative plan is for patient to see Dr North possibly tomorrow, Jul 01 for follow up care. Also, Tony needs encouragement w eating and needs to get oob for all meals. - Labs/Radiology BMP Date: 07/03/17 (weekly) - Follow Up Care Current Providers and Referrals: Chantal North MD [Medical Doctor] - Joana Montero MD [Primary Care Provider] - As per Instructions
--- NOTE | 2017-06-30 16:22 | ASMTCMCOM ---
CM Note CM Note Notes: Spoke w/Gerhard at [facility], still no auth from insurance company. Will hold dc today and CM will f/u tommorrow. RN to notifiy . Date Signed: 06/30/2017 04:22 PM Electronically Signed By:Yoli Guthrie RN
[2017-06-30] MEDS: ATORVASTATIN CALCIUM 10 MG TAB PO SCH (20:20)
[2017-07-01] MEDS: LEVOTHYROXINE 88 MCG TAB PO SCH (05:35)
[2017-07-01] MEDS: SENNOSIDES/DOCUSATE SODIUM TAB PO SCH ×2 (09:34→20:44)
[2017-07-01] MEDS: SERTRALINE HCL 100 MG TAB PO SCH (09:35)
[2017-07-01] MEDS: TAMSULOSIN HCL 0.4 MG CAP PO SCH (09:35)
[2017-07-01] MEDS: PRESERVISION AREDS2 FORMULA EYE VIT 1 EACH PO SCH ×2 (09:35→20:40)
[2017-07-01] MEDS: CHOLECALCIFEROL VIT D3 1,000 UNITS TAB PO SCH (09:35)
[2017-07-01] MEDS: ASCORBIC ACID 500 MG TAB PO SCH (09:35)
[2017-07-01] MEDS: POLYETHYLENE GLYCOL 3350 17 GM PKT PO SCH (09:37)
--- NOTE | 2017-07-01 14:22 | HOSPPROG ---
Hospitalist Progress Note Assessment/Plan: Hospitalist Progress Note Assessment/Plan: 87 y/o male with history of prostate cancer and urinary retention s/p TURP 2016. #Bladder outlet obstruction causing ROSIBEL -suprapubic placed -hold nephrotoxins -kidney function is improving -spoke w nephrology and they will f/u w him in OP setting -patient will f/u with Dr North-need to further discuss [facility] plan/ has an appt scheduled for the 12 of July #acute encephalopathy secondary to above -slowly improving -confused sandi in the morning #Hypotension -had significant urine output after robison placed in -has been given multiple boluses during his stay -this morning's blood pressure is stable. #weakness due to the above -PT and OT recommending SNF #h/o HTN -will hold dejuan in light of ROSIBEL -will DC Norvasc since he has been hypo intensive #hypernatremic improving oral intake #Hematuria -hold plavix -urine is clear #Hx of stroke -will soon resume Plavix, but will need to talk w urology as to when #Dispo: SNF. It is important that the patient resume his Plavix with history of a stroke. Subjective: Wants to leave the hospital. Objective: Vital Signs Temp Pulse Resp BP Pulse Ox 36.4 C 74 16 96/65 L 100 07/01/17 11:34 07/01/17 11:34 07/01/17 11:34 07/01/17 11:34 07/01/17 11:34 Laboratory Results 06/25/17 04:22 06/30/17 04:24 06/30/17 07/01/17 07/02/17 05:59 05:59 05:59 Intake Total 450 1116 Output Total 925 1025 Balance -475 91 - Physical Exam Constitutional: no apparent distress, appears nourished Eyes: PERRL, anicteric sclera Ears, Nose, Mouth, Throat: moist mucous membranes, hearing normal Cardiovascular: No JVD, No edema Respiratory: no respiratory distress, reduced air movement Gastrointestinal: No tenderness, No ascites Genitourinary: robison in urethra Skin: warm, normal color Musculoskeletal: normal joint ROM, no joint effusions Psychiatric: not anxious, not encephalopathic, poor judgement, poor memory ICD10 Worksheet Patient Problems: Problems Problem Status Onset Bladder neck contracture Acute Urine retention Acute Hematuria Acute Confusion Acute Confusion Acute Acute renal failure Acute Acute retention of urine Acute
[2017-07-01] MEDS: ATORVASTATIN CALCIUM 10 MG TAB PO SCH (20:40)
[2017-07-02] MEDS: LEVOTHYROXINE 88 MCG TAB PO SCH (05:01)
[2017-07-02] MEDS: TAMSULOSIN HCL 0.4 MG CAP PO SCH (09:29)
[2017-07-02] MEDS: PRESERVISION AREDS2 FORMULA EYE VIT 1 EACH PO SCH ×2 (09:30→20:15)
[2017-07-02] MEDS: CHOLECALCIFEROL VIT D3 1,000 UNITS TAB PO SCH ×2 (09:30→09:31)
[2017-07-02] MEDS: ASCORBIC ACID 500 MG TAB PO SCH (09:30)
[2017-07-02] MEDS: SERTRALINE HCL 100 MG TAB PO SCH (09:30)
[2017-07-02] MEDS: POLYETHYLENE GLYCOL 3350 17 GM PKT PO SCH (09:34)
[2017-07-02] MEDS: SENNOSIDES/DOCUSATE SODIUM TAB PO SCH ×2 (09:36→20:16)
--- NOTE | 2017-07-02 13:55 | HOSPPROG ---
Hospitalist Progress Note Assessment/Plan: Hospitalist Progress Note Assessment/Plan: 87 y/o male with history of prostate cancer and urinary retention s/p TURP 2016. #Bladder outlet obstruction causing ROSIBEL -suprapubic placed -hold nephrotoxins -kidney function is improving -spoke w nephrology and they will f/u w him in OP setting -patient will f/u with Dr North-need to further discuss long-term plan/ has an appt scheduled for the 12 of July #acute encephalopathy secondary to above -slowly improving -confused sandi in the morning #Hypotension -had significant urine output after robison placed in -has been given multiple boluses during his stay -this morning's blood pressure is stable. #weakness due to the above -PT and OT recommending SNF #h/o HTN -will hold dejuan in light of ROSIBEL -will DC Norvasc since he has been hypo intensive #hypernatremic improving oral intake #Hematuria -hold plavix -urine is clear #Hx of stroke -will soon resume Plavix, but will need to talk w urology as to when #Dispo: SNF. It is important that the patient resume his Plavix with history of a stroke. Subjective: Wants to leave the hospital. Feels well. Objective: Vital Signs Temp Pulse Resp BP Pulse Ox 36.5 C 77 16 106/68 95 07/02/17 07:36 07/02/17 07:36 07/02/17 07:36 07/02/17 07:36 07/02/17 07:36 Laboratory Results 06/25/17 04:22 06/30/17 04:24 07/01/17 07/02/17 07/03/17 05:59 05:59 05:59 Intake Total 1116 700 Output Total 1025 1000 Balance 91 -300 - Physical Exam Constitutional: not in pain, chronically ill appearing Eyes: PERRL, anicteric sclera Ears, Nose, Mouth, Throat: moist mucous membranes, hearing normal, ears appear normal Cardiovascular: No JVD, No edema Respiratory: no respiratory distress, reduced air movement Gastrointestinal: No tenderness, No ascites Genitourinary: other (suprapubic) Skin: warm, normal color Musculoskeletal: no joint effusions, generalized weakness Psychiatric: not anxious, not encephalopathic ICD10 Worksheet Patient Problems: Problems Problem Status Onset Bladder neck contracture Acute Urine retention Acute Hematuria Acute Confusion Acute Confusion Acute Acute renal failure Acute Acute retention of urine Acute
--- NOTE | 2017-07-02 16:37 | ASMTCMCOM ---
CM Note CM Note Notes: We continue to await insurance authorization for SNF for this patient. I have made multiple calls to [facility] and [employer] to try and expedite this process. [facility] has submitted clinical information to [facility] every day since initial auth requested (06/29/17 @ 1130), and our UR deparment sent additional notes yesterday. Today, I was given the name of the who is supposed to be handling the review of this case - Vikas Marquez [phone] - and I called her and left messages. I spoke with someone else at [facility] - Jazmin Aceves - who is handling the inpatient part of this paitent's hospitalization, and she said that because of his insurance plan structure, the case was given to Vikas (who is part of [employer]) for review. Unfortunately, neither I nor anyone at [facility] was able to speak to her today. Finally, I spoke with Dorcas Jennings ([phone]), a working supervisor at [facility], who could not help with the case but would send my phone number to someone at [employer] who might be able to help. I spoke with patient's earlier today who is concerned about this situation. I also had our communications station manager Elizabeth Nichols call her to offer support. Per patients (who called [facility] customer care), authorization should be received by tomorrow. Although tomorrow is Wednesday, we will continue to follow this case very closely in the hopes of discharging patient MICHAEL. Date Signed: 07/02/2017 04:37 PM Electronically Signed By:Valentina Singh RN
[2017-07-02] MEDS: ATORVASTATIN CALCIUM 10 MG TAB PO SCH (20:15)
[2017-07-03] MEDS: LEVOTHYROXINE 88 MCG TAB PO SCH (06:04)
[2017-07-03] MEDS: TAMSULOSIN HCL 0.4 MG CAP PO SCH (08:09)
[2017-07-03] MEDS: SERTRALINE HCL 100 MG TAB PO SCH (08:09)
[2017-07-03] MEDS: PRESERVISION AREDS2 FORMULA EYE VIT 1 EACH PO SCH ×2 (08:10→20:23)
[2017-07-03] MEDS: ASCORBIC ACID 500 MG TAB PO SCH (08:10)
[2017-07-03] MEDS: SENNOSIDES/DOCUSATE SODIUM TAB PO SCH ×2 (08:10→20:23)
[2017-07-03] MEDS: POLYETHYLENE GLYCOL 3350 17 GM PKT PO SCH (08:11)
--- NOTE | 2017-07-03 15:42 | ASMTCMCOM ---
CM Note CM Note Notes: Michelle attempted to place Pt. in [facility] today. Alonzo, still no authorization from [employer] Medicare insurance. Michelle left [facility] for [place] at . No return call. Michelle met w/ Marline C: . Marline frustrated but understands [facility] stands with her. Marline went to pick daughter up at [facility] today. Michelle spoke w/ Vivian from [facility] twice. She has not heard from [facility] today either. CM to follow . Date Signed: 07/03/2017 03:42 PM Electronically Signed By:Negar Lu LCSW
--- NOTE | 2017-07-03 15:58 | HOSPPROG ---
Hospitalist Progress Note Assessment/Plan: 87-year-old male with a history of prostate cancer and recent urinary retention , status post TURP on 10/15/2016. He presented with bladder outlet obstruction causing acute kidney injury. Since admission a suprapubic catheter has been placed and he is kidney function has been improving. Patient is new to me today #Bladder outlet obstruction causing ROSIBEL -suprapubic placed -hold nephrotoxins -kidney function is improving -spoke w nephrology and they will f/u w him in OP setting -patient will f/u with Dr North-need to further discuss penitentiary plan/ has an appt scheduled for the 12 of July #acute encephalopathy secondary to above -slowly improving -patient more alert than previously described this a.m.. He seems to understand more of his care. #Hypotension: BP currently low but in a normal range and patient is asymptomatic. #weakness due to the above -PT and OT recommending SNF #h/o HTN: Holding all BP meds due to relative hypotension. Patient was previously taking an Nilson and a calcium channel shellie. The Norvasc has been stopped -will hold nilson in light of ROSIBEL -will DC Norvasc since he has been hypo intensive #hypernatremic improving oral intake #Hematuria -hold plavix -urine is clear #Hx of stroke -will soon resume Plavix, but will need to talk w urology as to when #Dispo: SNF. It is important that the patient resume his Plavix with history of a stroke. Findings were discussed with the patient's in all questions were answered. There remains a question when to begin his Plavix as to when a urology consult will occur. He has a urology appointment on July 12 yet I do not believe any procedure is planned. Time: 50 min greater than 50% to children's counselor and answered the 's questions. Case was discussed with nursing Subjective: Reports he is feeling better a little stronger no nausea vomiting chest pain or shortness of breath this suprapubic catheter is not painful. Objective: Vital Signs Temp Pulse Resp BP Pulse Ox 36.3 C 82 16 99/59 L 96 07/03/17 07:19 07/03/17 07:19 07/03/17 07:19 07/03/17 07:19 07/03/17 07:19 Laboratory Results 06/25/17 04:22 06/30/17 04:24 07/02/17 07/03/17 07/04/17 05:59 05:59 05:59 Intake Total 700 400 450 Output Total 1000 850 225 Balance -300 -450 225 - Time Spent With Patient Time Spent with Patient: greater than 35 minutes Time Spent with Patient: Greater than 35 minutes spent on this patients care, greater than 50% of time spent counseling, educating, and coordinating care regarding the above mentioned plan. - Pending Discharge Pending Discharge Within 24 Hours: No Pending Discharge Within 48 Hours: No - Physical Exam Constitutional: no apparent distress, chronically ill appearing Eyes: PERRL, anicteric sclera Ears, Nose, Mouth, Throat: moist mucous membranes, hard of hearing Cardiovascular: regular rate and rhythym, no murmur, rub, or gallop Respiratory: no respiratory distress, no rales or rhonchi Gastrointestinal: normoactive bowel sounds, soft, non-tender abdomen, no palpable masses, other (Suprapubic catheter noted nontender and with good flow without hematuria) Genitourinary: no bladder fullness, other (Suprapubic catheter noted, no hematuria) Skin: warm, other (Slightly pale-appearing) Musculoskeletal: generalized weakness Neurologic: AAOx3, CN II-XII Intact Psychiatric: interacting appropriately ICD10 Worksheet Patient Problems: Problems Problem Status Onset Bladder neck contracture Acute Urine retention Acute Hematuria Acute Confusion Acute Confusion Acute Acute renal failure Acute Acute retention of urine Acute
[2017-07-03] MEDS: ATORVASTATIN CALCIUM 10 MG TAB PO SCH (20:23)
[2017-07-04 05:02] LABS: PLATELET COUNT 201 10^3/uL (150-400)
[2017-07-04] MEDS: LEVOTHYROXINE 88 MCG TAB PO SCH (05:25)
[2017-07-04] MEDS: SERTRALINE HCL 100 MG TAB PO SCH (09:06)
[2017-07-04] MEDS: ASCORBIC ACID 500 MG TAB PO SCH (09:06)
[2017-07-04] MEDS: TAMSULOSIN HCL 0.4 MG CAP PO SCH (09:07)
[2017-07-04] MEDS: CHOLECALCIFEROL VIT D3 1,000 UNITS TAB PO SCH (09:07)
[2017-07-04] MEDS: PRESERVISION AREDS2 FORMULA EYE VIT 1 EACH PO SCH ×2 (09:07→20:08)
[2017-07-04] MEDS: SENNOSIDES/DOCUSATE SODIUM TAB PO SCH ×2 (09:08→20:11)
[2017-07-04] MEDS: POLYETHYLENE GLYCOL 3350 17 GM PKT PO SCH (09:10)
--- NOTE | 2017-07-04 16:33 | HOSPPROG ---
Hospitalist Progress Note Assessment/Plan: 87-year-old male with a history of prostate cancer and recent urinary retention , status post TURP on 10/15/2016. He presented with bladder outlet obstruction causing acute kidney injury. Since admission a suprapubic catheter has been placed and he is kidney function has been improving. Yesterday the patient defecated on himself and has clear difficulty caring for himself. 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 #Bladder outlet obstruction causing ROSIBEL: Holding all nephrotoxins his and his kidney function is improving. He is scheduled for an outpatient follow-up with Dr. martinez on July 12. As there is no procedure planned going to restart his Plavix re history of strokes. -patient will f/u with Dr North-need to further discuss correction plan/ has an appt scheduled for the 12 of July #acute encephalopathy secondary to above: This has been improving but is currently not at a high functional level. There is a background dementia. #Hypotension: BP currently low but in a normal range and patient is asymptomatic. #weakness due to the above: Currently walks well with standby assist. -PT and OT recommending SNF #h/o HTN: Holding all BP meds due to relative hypotension. Patient was previously taking an Nilson and a calcium channel shellie. The Norvasc has been stopped #hypernatremic improving oral intake #Hematuria: Now resolved and no obstruction to the suprapubic catheter. This has been exacerbated by the use of Plavix yet it is necessary to restart his Plavix now. # dementia with a history of stroke. -will resume Plavix. #Dispo: SNF. [facility] but this is not forthcoming. I believe this gentleman would do well in a SNF and does not require [facility] although that is a discussion as to be had with the . Today the is not available further discussion -at discharge I suggest a call to Urology to assess if they are going to do a procedure on the and thus wanted full hold the Plavix longer. The Urology up appointment and follow-up needs to be well established at discharge. For disposition we could consider just an SNF and not [facility] but that again would need to be discussed with his Time: 50 min greater than 50% to assess the patient's functional level and discussed with case management and optional disposition to an SNF versus [facility]. Once again [facility] was not available today Subjective: Reports he is feeling well. Per nursing he walked in the [place] with standby assist. He is slowly improving in his ambulation and function although his intellectual function is not improving. He is oriented times 2-3 and unable to recall remote significant events. Objective: Vital Signs Temp Pulse Resp BP Pulse Ox 36.7 C 95 18 94/61 L 97 07/04/17 15:42 07/04/17 15:42 07/04/17 15:42 07/04/17 15:42 07/04/17 15:42 Laboratory Results 07/04/17 04:15 07/04/17 04:15 07/03/17 07/04/17 07/05/17 05:59 05:59 05:59 Intake Total 400 550 Output Total 850 725 350 Balance -450 -175 -350 - Time Spent With Patient Time Spent with Patient: greater than 35 minutes Time Spent with Patient: Greater than 35 minutes spent on this patients care, greater than 50% of time spent counseling, educating, and coordinating care regarding the above mentioned plan. - Pending Discharge Pending Discharge Within 24 Hours: No Pending Discharge Within 48 Hours: Yes Pending Discharge Date: 07/06/17 Pending Discharge Time: 11:00 - Physical Exam Constitutional: no apparent distress, chronically ill appearing Eyes: PERRL, anicteric sclera Ears, Nose, Mouth, Throat: moist mucous membranes, hard of hearing Cardiovascular: regular rate and rhythym, no murmur, rub, or gallop Respiratory: no respiratory distress, no rales or rhonchi Gastrointestinal: normoactive bowel sounds, soft, non-tender abdomen, other ( Suprapubic catheter noted without inflammation or hematuria) Genitourinary: no bladder fullness Skin: warm Musculoskeletal: generalized weakness Neurologic: CN II-XII Intact (Oriented x2, unable to recall recent and significant remote events) Psychiatric: interacting appropriately ICD10 Worksheet Patient Problems: Problems Problem Status Onset Bladder neck contracture Acute Urine retention Acute Hematuria Acute Confusion Acute Confusion Acute Acute renal failure Acute Acute retention of urine Acute
[2017-07-04] MEDS: ATORVASTATIN CALCIUM 10 MG TAB PO SCH (20:08)
[2017-07-05 05:26] LABS: PLATELET COUNT 186 10^3/uL (150-400)
[2017-07-05] MEDS: LEVOTHYROXINE 88 MCG TAB PO SCH (05:58)
[2017-07-05] MEDS: SENNOSIDES/DOCUSATE SODIUM TAB PO SCH ×2 (08:53→22:24)
[2017-07-05] MEDS: POLYETHYLENE GLYCOL 3350 17 GM PKT PO SCH (08:53)
[2017-07-05] MEDS: SERTRALINE HCL 100 MG TAB PO SCH (08:53)
[2017-07-05] MEDS: PRESERVISION AREDS2 FORMULA EYE VIT 1 EACH PO SCH ×2 (08:53→22:24)
[2017-07-05] MEDS: TAMSULOSIN HCL 0.4 MG CAP PO SCH (08:53)
[2017-07-05] MEDS: CHOLECALCIFEROL VIT D3 1,000 UNITS TAB PO SCH (08:53)
[2017-07-05] MEDS: ASCORBIC ACID 500 MG TAB PO SCH (08:53)
--- NOTE | 2017-07-05 14:34 | HOSPPROG ---
Hospitalist Progress Note Assessment/Plan: Hospitalist Progress Note Assessment/Plan: 87-year-old male with a history of prostate cancer and recent urinary retention , status post TURP on 10/15/2016. He presented with bladder outlet obstruction causing acute kidney injury. Since admission a suprapubic catheter has been placed and he is kidney function has been improving. #Bladder outlet obstruction causing ROSIBEL: Holding all nephrotoxins his and his kidney function is improving. He is scheduled for an outpatient follow-up with Dr. North on July 12. As there is no procedure planned going to restart his Plavix re history of strokes. -patient will f/u with Dr North-need to further discuss [facility] plan/ has an appt scheduled for the 12 of July #acute encephalopathy secondary to above: This has been improving but is currently not at a high functional level. There is a background dementia. #Hypotension: BP currently low but in a normal range and patient is asymptomatic. #Acute kidney injury. Creatinine has been improving throughout the hospitalization. #weakness due to the above: Currently walks well with standby assist. PT and OT recommending SNF insurance denied home with HHC/ 24 hour supervision #h/o HTN: Holding all BP meds due to relative hypotension. Patient was previously taking an Nilson and a calcium channel shellie. The Norvasc has been stopped #hypernatremic improving oral intake #Hematuria: Now resolved and no obstruction to the suprapubic catheter. This has been exacerbated by the use of Plavix cont to hold plavix # dementia with a history of stroke. will need plavix restarted after urology procedure on Jul 12 #Dispo: Insurance denied SNF auth. [facility] by the in am D/W [facility] physician D/W CM > 40min spent Subjective: Up in chair. Feeling well. Eager to leave the hospital. Objective: Vital Signs Temp Pulse Resp BP Pulse Ox 36.7 C 85 18 107/62 97 07/05/17 08:00 07/05/17 08:00 07/05/17 08:00 07/05/17 08:00 07/05/17 08:00 Laboratory Results 07/05/17 04:31 07/05/17 04:31 07/04/17 07/05/17 07/06/17 05:59 05:59 05:59 Intake Total 550 900 Output Total 728 900 Balance -175 0 - Physical Exam Constitutional: no apparent distress, appears nourished, not in pain Eyes: PERRL, anicteric sclera, EOMI Ears, Nose, Mouth, Throat: moist mucous membranes, hearing normal, ears appear normal Cardiovascular: regular rate and rhythym, No JVD, No edema Respiratory: no respiratory distress, no rales or rhonchi, reduced air movement Gastrointestinal: normoactive bowel sounds, No tenderness, No ascites Genitourinary: other (suprapubic) Skin: warm, normal color, No erythema Musculoskeletal: normal joint ROM, no joint effusions, generalized weakness Psychiatric: not anxious, not encephalopathic, poor judgement, poor memory ICD10 Worksheet Patient Problems: Problems Problem Status Onset Bladder neck contracture Acute Urine retention Acute Hematuria Acute Confusion Acute Confusion Acute Acute renal failure Acute Acute retention of urine Acute
[2017-07-05] MEDS: ATORVASTATIN CALCIUM 10 MG TAB PO SCH (22:23)
[2017-07-06 08:00] VITALS: BP 96/67; PULSE 97; RESP 20; TEMP 97.7; O2SAT 97
[2017-07-06] MEDS: PRESERVISION AREDS2 FORMULA EYE VIT 1 EACH PO SCH (09:07)
[2017-07-06] MEDS: TAMSULOSIN HCL 0.4 MG CAP PO SCH (09:07)
[2017-07-06] MEDS: SENNOSIDES/DOCUSATE SODIUM TAB PO SCH (09:08)
[2017-07-06] MEDS: SERTRALINE HCL 100 MG TAB PO SCH (09:08)
[2017-07-06] MEDS: CHOLECALCIFEROL VIT D3 1,000 UNITS TAB PO SCH (09:08)
[2017-07-06] MEDS: POLYETHYLENE GLYCOL 3350 17 GM PKT PO SCH (09:09)
[2017-07-06] MEDS: ASCORBIC ACID 500 MG TAB PO SCH (09:09)
[2017-07-06] MEDS: LEVOTHYROXINE 88 MCG TAB PO SCH (11:03)
--- NOTE | 2017-07-06 13:51 | ASMTCMCOM ---
CM Note CM Note Notes: This note is intended for 07/05/17 CM spoke w/ Sanjana at [facility]. Sanjana informed CM that [employer] has denied auth for pt to go to SNF. The next steps would be a peer to peer review. CM passed this info on to Pita Pringle NP. Pita has completed the peer to peer review. [employer] continues to deny auth even after the peer to peer. CM notified [facility] of the denial. Pt will need to go home w/ HC and 24hr supervision. CM notified . does not feel comfortable w/ having him home before she is able to set up supervision. CM made referrals to a number of HC agencies. did not have a preference on HC agencies as long as it is covered by insurance. [facility] is able to accept pt. CM provided phone number of to [facility] for [facility] to contact directly. CM provided w/ list of non skilled HC agencies. CM to follow. Plan: HC; RN, PT, OT with 24hr supervision Date Signed: 07/06/2017 01:51 PM Electronically Signed By:SHANELLE Pineda
--- NOTE | 2017-07-06 14:02 | PDIAF ---
- Diagnosis Diagnosis: BOLANOS, ROSIBEL, prostate ca, delerium Code Status: Do Not Resuscitate - Medication Management Discharge Medications: Medications to Continue on Transfer Aflibercept [Eylea] 2 mg IO Q30D PRN 04/04/16 [Last Taken 09/20/16] C/E/Zn/Cu/OM3/DHA/EPA/LUT/ZEAX [Preservision Areds 2 Softgel] 1 each PO BID 02/10 [Last Taken 09/27/16 09:00] Herbals/Supplements -Info Only 1 ea PO DAILY 04/04/16 [Last Taken Unknown] Sertraline HCl [Zoloft 100mg (*)] 100 mg PO DAILY 04/04/16 [Last Taken 09/27/16] Simvastatin [Zocor] 20 mg PO HS 04/04/16 [Last Taken 09/26/16] Ascorbic Acid [Vitamin C 500 mg (*)] 500 mg PO DAILY 09/27/16 [Last Taken ] Cholecalciferol Vit D3 [Vitamin D3 (*)] 1,000 units PO DAILY 09/27/16 [Last Taken 09/27/16] Finasteride [Proscar 5 MG (*)] 5 mg PO DAILY 09/27/16 [Last Taken 09/27/16] Leuprolide Acetate [Lupron Depot 22.5 MG (RX)] 22.5 mg IM .[id number] 09/27/16 [ Last Taken 09/26/16] Levothyroxine [Synthroid 88 mcg (*)] 88 mcg PO DAILY06 09/27/16 [Last Taken 08/14] Ranitidine HCl 150 mg PO HS 09/27/16 [Last Taken 09/26/16] Tamsulosin HCl [Flomax 0.4 MG (*)] 0.8 mg PO DAILY 09/27/16 [Last Taken 09/27/16 ] Acetaminophen [Tylenol 325mg (*)] 650 mg PO Q4HRS PRN #0 tab 09/30/16 [Last Taken Unknown] Polyethylene Glycol 3350 [Miralax 17 gm (*)] 17 gm PO DAILY pkt 06/29/17 [Last Taken Unknown] Sennosides/Docusate Sodium [Senokot-S] 1 - 2 tab PO BID tab 01/02/18 [Last Taken Unknown] Discharge Medications: Refer to the Discharge Home Medication list for PRN reason. - Orders Services needed: Home Care, Registered Nurse, Physical Therapy, Occupational Therapy Home Care Face to Face: I certify that this patient was under my care and that I had the required [id number] encounter meeting the encounter requirements on the discharge day. My findings support the fact that the patient is homebound as defined in Home Care Face to Face Continued: CMS Chapter 7 Medicare Benefits Manual 30.1.1 , The condition of the patient is such that there exists a normal inability to leave home and consequently, leaving home would require a considerable and taxing effort. Diet Recommendation: no restrictions on diet Diet Texture: Regular Texture Diet Garcia: Yes (suprapubic) Additional: Lisinopril has been discontinued due to renal failure and hyppotension. Plavix has been placed on hold for further procedures with Dr. North. Plavix should be resumed as soon as possible because patient has a history of a stroke. Tenative plan is for patient to see Dr North possibly tomorrow, Jul 01 for follow up care. Also, Tony needs encouragement w eating and needs to get oob for all meals. - Labs/Radiology BMP Date: 07/03/17 (weekly) - Follow Up Care Current Providers and Referrals: Chantal North MD [Medical Doctor] - Joana Montero MD [Primary Care Provider] - As per Instructions
--- NOTE | 2017-07-06 16:11 | GDS ---
[f rep st] DISCHARGE SUMMARY DISCHARGE DIAGNOSES: 1. Bladder outlet obstruction. 2. Acute kidney injury. 3. Acute encephalopathy. 4. Baseline dementia. 5. Hypotension. 6. Weakness. 7. History of hypertension. 8. Hyponatremia. 9. Hematuria. CONSULTATIONS: Urology. STUDIES AND PROCEDURES DONE: 1. Suprapubic catheter placement. 2. Abdominal ultrasound. PHYSICAL EXAM: GENERAL: The patient is alert. VITAL SIGNS: Afebrile at 36.5, pulse is 97, respira tory rate is 20, blood pressure is 96/67, he is saturating 97%. I have seen the patient on the day o f discharge. HOSPITAL COURSE: The patient is an 87-year-old male who presented to the emergency room with acute i llness. He was evaluated and diagnosed with: 1. Bladder outlet obstruction. During this hospitalization, he received a consultation from Urology . A suprapubic catheter was placed and remains intact. The patient will require followup with Dr. Giovana keyes on July 12, for further evaluation and recommendations of therapy. 2. Hematuria. This is in the setting of suprapubic catheter placement, and the patient being on Amor vix. His Plavix has been discontinued during this hospital course. His hematuria has resolved and h e will require re-initiation of his Plavix after his urology evaluation has completed. 3. Acute encephalopathy. This has resolved. 4. Baseline dementia. The patient appears to be close to his baseline mentation, out of his normal environment. 5. Hypotension. This is in the setting of blood loss and has resolved. 6. History of hypertension. This is stable. 7. Weakness. The patient will require Home Health Care and 24-hour supervision. 8. Hypernatremia. This is in the setting of hypovolemia and has resolved with hydration. DISPOSITION: The patient will be discharged home with his as well as Home Health Care and 24-ho home services. His insurance has denied SNF placement at the time of disposition. DISCHARGE MEDICATIONS: Please refer to EMR form. I have discontinued the patient's lisinopril as we ll as Plavix during this hospital course. His Plavix will need to be re-initiated in the outpatient setting after his evaluation by Dr. North on July 12. PENDING STUDIES: There are no pending studies. FOLLOWUP: Will be with Dr. North on Mendy 15, as well as his primary care physician, Dr. Joana Montero. I spent greater than 35 minutes in the care, coordination, and management of this patient's dispositi on. /[id number]/MODL
--- NOTE | 2017-07-06 16:33 | ASDISCHSUM ---
Discharge Information Plan Status:Home with Home Health Medically Cleared to Leave:07/05/2017 Discharge Date:07/06/2017 04:07 PM D/C Disposition: ADT D/C Disposition:Home Health Service Projected Discharge Date:07/06/2017 11:00 AM Transportation at D/C: Discharge Delay Reason: Follow-Up Date:07/06/2017 11:00 AM Discharge Slot: Final Diagnosis: Placement Information Referral Type:*Snf/SNF Referral ID:[id number] Provider Name: Address 1: Phone Number: Address 2: Fax Number: City: Selection Factors: State: Referral Type:*Home Health Care Services Referral ID:[id number] Provider Name:[facility] (formerly [facility]) Address 1:[address] [place] [address] Address 2: City:[place] Selection Factors: State:[place] Patient Contact Information Contact Name:NATALEE Relationship: Address:[address] City:[place] Alternate Phone: State/Zip Code:[place] [address] Email: Financial Information Financial Class:Medicare Advantage Plans Primary Plan Desc:[employer] MEDICARE ADV Primary Plan Number:[id number] Secondary Plan Desc: Secondary Plan Number: Assessment Information [facility] CM Progress Note CM Note CM Note Notes: Patient admitted with general malaise, confusion, urinary retention. He is s/p TURP in Februrary. ED staff was unable to place Garcia today, and urology was consulted. Patient normally lives with . PT/OT have been ordered, discharge needs TBD. We will follow. Date Signed: 06/22/2017 04:03 PM Electronically Signed By:Valentina Singh RN [facility] CM Progress Note CM Note CM Note Notes: Yoli ESPARZA met w/pt to discuss SNF rehab w/pt and he was agreeable. She also left voicemail for pt's . Referrals sent to: [facility], [facility], [facility], [facility], and [facility]. Awaiting responses from SNFs. Date Signed: 06/24/2017 05:12 PM Electronically Signed By:Melba Plascencia RN [facility] Progress Note CM Note CM Note Notes: Spoke w/pt's re; dc [facility]. She is amenable to pt going to SNF, let her know which rehabs we sent referrals to and she chooses [facility] as it is the closest to them. CM will let her know when we get an approval. DC Plan: [facility] Date Signed: 06/25/2017 12:30 PM Electronically Signed By:Yoli Guthrie RN [facility] CM Progress Note CM Note CM Note Notes: Received call from Gerhard at [facility], pt has been accepted but they need to send in for authorization from [facility] and won't come throught today. Due to holiday weekend, probably won't get until Wednesday. DC Plan: [facility] Date Signed: 06/25/2017 02:17 PM Electronically Signed By:Yoli Guthrie RN [facility] CM Progress Note CM Note CM Note Notes: Patient to D/C to [facility] tomorrow per Miesha Prieto NP. [facility] has accepted. CM will follow. Date Signed: 06/28/2017 11:25 AM Electronically Signed By:Milka Almodovar LCSW [facility] CM Progress Note CM Note CM Note Notes: CM spoke adrianna Salas RN and Miesha Prieto NP regarding d/c POC. Initally the plan was to have pt [facility] today to [facility]. However, pt is not medically ready today. CM informed [facility] to start getting auth. CM to follow. Plan: [facility] Date Signed: 06/29/2017 01:59 PM Electronically Signed By:SHANELLE Pineda [facility] CM Progress Note CM Note CM Note Notes: Spoke Carmen at [employer], still no auth from insurance company. Will hold dc today and CM will f/u tommorrow. CAROLEE to notifiy . Date Signed: 06/30/2017 04:22 PM Electronically Signed By:Yoli Guthrie RN [facility] CM Progress Note CM Note CM Note Notes: We continue to await insurance authorization for SNF for this patient. I have made multiple calls to [employer] and [employer] to try and expedite this process. [facility] has submitted clinical information to [employer] every day since initial auth requested (06/29/17 @ 5476), and our UR deparment sent additional notes yesterday. Today, I was given the name of the CM who is supposed to be handling the review of this case - Vikas Marquez [phone] - and I called her and left messages. I spoke with someone else at [facility] - Jazmin Aceves - who is handling the inpatient part of this paitent's hospitalization, and she said that because of his insurance plan structure, the case was given to Vikas (who is part of [employer]) for review. Unfortunately, neither I nor anyone at [facility] was able to speak to her today. Finally, I spoke with Dorcas Jennings ([phone]), a foreman or supervisor and operator at [facility], who could not help with the case but would send my phone number to someone at [employer] who might be able to help. I spoke with patient's earlier today who is concerned about this situation. I also had our manager programming Elizabeth Nichols call her to offer support. Per patients (who called [facility] customer care), authorization should be received by tomorrow. Although tomorrow is Wednesday, we will continue to follow this case very closely in the hopes of discharging patient MICHAEL. Date Signed: 07/02/2017 04:37 PM Electronically Signed By:Valentina Singh RN [facility] Progress Note CM Note CM Note Notes: Bud[facility]ina [facility]. Alonzo, still no authorization from [employer] insurance. Michelle left msg for Jessika at . No return call. SWer met w/ Marline C: . Marline frustrated but understands [facility] stands with her. Marline went to pick daughter up at [facility] today. Michelle spoke w/ Vivian from [employer] twice. She has not heard from [facility] today either. CM to follow . Date Signed: 07/03/2017 03:42 PM Electronically Signed By:Negar Lu LCSW [facility] ISAIAS Progress Note CM Note ISAIAS Note Notes: This note is intended for 07/05/17 ISAIAS spoke w/ Sanjana at [employer]. Sanjana informed ISAIAS that [employer] has denied auth for pt to go to SNF. The next steps would be a peer to peer review. ISAIAS passed this info on to Pita Pringle NP. Pita has completed the peer to peer review. [facility] continues to deny auth even after the peer to peer. ISAIAS notified [facility] of the denial. Pt will need to go home w/ HC and 24hr supervision. CM notified . does not feel comfortable w/ having him home before she is able to set up supervision. CM made referrals to a number of HC agencies. did not have a preference on HC agencies as long as it is covered by insurance. [facility] CM provided phone number of to [facility] for [facility] to contact directly. CM provided w/ list of non skilled HC agencies. CM to follow. Plan: HC; RN, PT, OT with 24hr supervision Date Signed: 07/06/2017 01:51 PM Electronically Signed By:SHANELLE Pineda Case Management Discharge Plan Note Case Management Discharge Discharge Order Complete? Answers: Yes Patient to Obtain Answers: via Family Medications Transportation Arranged Answers: Family/Friends Transport will Pick (Date 07/06/2017 04:00 PM & Time) EMTALA Complete Answers: No Case Management Transport Answers: No Form Complete Faxed Final Orders Answers: Yes Agency/Facility Transfer Answers: Yes Report Printed & Faxed to Receiving Agency Family Notified Answers: Yes Discharge Comments Notes: Pt is being discharged home today w/ . Pt will have [facility], PT, OT, RN. D/C orders sent to [facility]. has set up 10 hours of supervision per week to start with. will increase need if pt needs a higher level of care. is appealing [facility] regarding SNF denial. CM informed that she will need to sign a release of information with medical records to release info to [facility] will go to medical records prior to discharging w/ pt. CM available for changes. Plan: [facility], HC; PT, OT, RN Date Signed: 07/06/2017 03:56 PM Electronically Signed By:SHANELLE Pineda Intervention Information Intervention Type:*Incorrect Registration Date of Service:06/23/2017 04:26 AM Patient Type:Inpatient Staff Member:CAROLEE Ware, Ingrid Hours: Discipline: Severity: Comment: Intervention Type:*IM-Signed Date of Service:06/29/2017 11:31 AM Patient Type:Inpatient Staff Member:Donna Ortiz Hours: Discipline: Severity: Comment:
== END 2017-07-06 16:07 | disposition home health service (06) | DRG 698 ==
LOC: INTOOBSV 14:33 → F3E 15:31 → OBSVTOIN 06-23 11:14
PROVIDERS: ADMIT Family Medicine; ATTEND Internal Medicine Pulmonary Disease
PROC: 0T9B30Z Drainage of Bladder with Drainage Device, Percutaneous Approach (ICD-10-PCS; principal; 2017-06-23)
DX: N32.0 Bladder-neck obstruction (principal); R33.8 Other retention of urine; N17.9 Acute kidney failure, unspecified; C61 Malignant neoplasm of prostate; R31.0 Gross hematuria; T45.8X5A Adverse effect of other primarily systemic and hematological agents, initial encounter; E87.0 Hyperosmolality and hypernatremia; E86.1 Hypovolemia; G93.49 Other encephalopathy; F03.90 Unspecified dementia, unspecified severity, without behavioral disturbance, psychotic disturbance, mood disturbance, and anxiety; Z86.73 Personal history of transient ischemic attack (TIA), and cerebral infarction without residual deficits; R53.1 Weakness; E03.9 Hypothyroidism, unspecified; I10 Essential (primary) hypertension; H35.30 Unspecified macular degeneration
CPT/HCPCS: 82947-QW; 97116-GP; 97161-GP; 97165-GO; 97530-GO; 97530-GP; 97535-GO; G0378; G8987-GO-CL; G8988-GO-CI; J0696